=== PATIENT | female | born 1945 | race Caucasian/White ===

== ENCOUNTER → 2016-10-19 | Outpatient (CLI) | payer BC ==
[~2016-10-19] MED LIST: AMT10 PO; ATV5 PO; CLTP PO; ESZO1TAB6 PO; FSM70 PO; GABA-112 PO; MULT-506 PO; Melatonin PO; OMEG10007 PO; SIMV20TA2 PO; [UNRECOGNIZED DRUG - OTHER] PO; [UNRECOGNIZED DRUG - REMARK] PO
--- NOTE | 2016-10-19 17:01 | DIAGNOSTIC IMAGING REPORT ---
RIGHT TIBIA/FIBULA 2 VIEWS ROUTINE CLINICAL HISTORY: DISTAL CHONDROID LESION Right pain COMPARISON: None. DISCUSSION: Calcification distal tibial shaft. This appears to be benign in overall appearance. There are no expansile characteristics. There is no well-defined soft tissue component. Diagnostic considerations include bone infarct versus benign chondroid matrix type lesion)/ chondroma. There is no evidence for soft tissue swelling. IMPRESSION: Benign calcification distal tibial shaft consistent with old bone infarct versus benign en chondroma. No acute process. Electronically signed by: Tate Fuchs M.D. 10/19/2016 5:00 PM Dictated Date/Time: 10/19/2016 4:58 PM
== END | disposition home or self-care (01) ==
LOC: C.RAD 16:35
DX: M89.9 Disorder of bone, unspecified (principal)

== ENCOUNTER → 2017-02-01 | Outpatient (CLI) | payer BC ==
[2017-02-01 09:39] LABS: BASO % 0.8 %; BASO ABS # 0.04 K/uL (0-0.2); COMPLETE YES; EOS % 6.5 %; HEMATOCRIT 40.9 % (37-47); IG% 0.2 %; LYMPH % 35.6 %; LYMPH ABS # 1.82 K/uL (1.2-3.4); MEAN CELL VOLUME 98.3 fL (80-100); MEAN CORPUSCULAR HEMOGLOBIN 33.4 pg (25-34); MEAN PLATELET VOLUME 8.9 fL (7.4-10.4); MONO % 10.2 %; NEUT % 46.7 %; PLATELET COUNT 241 K/uL (130-400); RED BLOOD COUNT 4.16 M/uL (4.2-5.4); WHITE BLOOD COUNT 5.11 K/uL (4.8-10.8)
[2017-02-01 09:55] LABS: ALT/SGPT 36 U/L (12-78); AST/SGOT 24 U/L (15-37); BLOOD UREA NITROGEN 20 mg/dl (7-18); BUN/CREATININE RATIO 20.2 (10-20); CARBON DIOXIDE 28 mmol/L (21-32); CHLORIDE 102 mmol/L (98-107); CHOLESTEROL 199 mg/dl (0-200); GLUCOSE 93 mg/dl (70-99); POTASSIUM 4.4 mmol/L (3.5-5.1); SODIUM 138 mmol/L (136-145); TRIGLYCERIDES 69 mg/dl (0-150); VERY LOW DENSITY LIPOPROT CALC 14 mg/dl
[2017-02-01 09:59] LABS: CHOLESTEROL/HDL RATIO 2.3; FERRITIN 49.9 ng/ml (8.0-388.0); HDL CHOLESTEROL 88 mg/dl; LDL CHOLESTEROL CALCULATED 97 mg/dl
[2017-02-01 10:01] LABS: ESTIMATED AVERAGE GLUCOSE 128 mg/dl; HA1C FLAG Normal (Normal)
== END | disposition home or self-care (01) ==
LOC: C.LAB1850 07:57
DX: R73.9 Hyperglycemia, unspecified (principal); E78.5 Hyperlipidemia, unspecified; M19.90 Unspecified osteoarthritis, unspecified site; E61.1 Iron deficiency

== ENCOUNTER → 2017-05-11 | Outpatient (CLI) | payer BC ==
[2017-05-11 16:14] LABS: BASO % 0.5 %; BASO ABS # 0.03 K/uL (0-0.2); COMPLETE YES; EOS % 5.4 %; HEMATOCRIT 39.9 % (37-47); IG% 0.3 %; LYMPH % 29.2 %; LYMPH ABS # 1.79 K/uL (1.2-3.4); MEAN CELL VOLUME 96.6 fL (80-100); MEAN CORPUSCULAR HEMOGLOBIN 32.7 pg (25-34); MEAN CORPUSCULAR HGB CONC 33.8 g/dl (32-36); MEAN PLATELET VOLUME 8.7 fL (7.4-10.4); MONO % 10.9 %; NEUT % 53.7 %; PLATELET COUNT 261 K/uL (130-400); RED BLOOD COUNT 4.13 M/uL (4.2-5.4); WHITE BLOOD COUNT 6.13 K/uL (4.8-10.8)
[2017-05-11 16:27] LABS: BLOOD UREA NITROGEN 22 mg/dl (7-18); BUN/CREATININE RATIO 32.6 (10-20); CALCIUM 9.4 mg/dl (8.5-10.1); CARBON DIOXIDE 28 mmol/L (21-32); CHLORIDE 99 mmol/L (98-107); CREATININE 0.68 mg/dl (0.60-1.20); GLUCOSE 87 mg/dl (70-99); MAGNESIUM 2.4 mg/dl (1.8-2.4); POTASSIUM 4.2 mmol/L (3.5-5.1); SODIUM 134 mmol/L (136-145)
== END | disposition home or self-care (01) ==
LOC: C.CPL 15:12
DX: R00.2 Palpitations (principal)

== ENCOUNTER → 2017-08-09 | Outpatient (CLI) | payer BC ==
--- NOTE | 2017-08-10 07:48 | MAMMOGRAPHY REPORT ---
BILATERAL DIGITAL SCREENING MAMMOGRAM WITH CAD: 08/09/2017 CLINICAL HISTORY: Routine screening. Patient has no complaints. TECHNIQUE: Bilateral CC and MLO views were obtained. Current study was also evaluated with a Comput er Aided Detection (CAD) system. COMPARISON: Comparison is made to exams dated: 05/15/2016 mammogram, 05/03/2015 mammogram, 05/04/2014 ina mogram, 04/27/2014 mammogram, 04/24/2013 mammogram, and 04/22/2012 ultrasound - [facility]. BREAST COMPOSITION: The tissue of both breasts is heterogeneously dense, which may obscure small mas ses. FINDINGS: The parenchymal pattern is similar to prior mammograms. There are scattered stable benign -appearing rim, rounded punctate microcalcifications. No developing mass, architectural distortion o r cluster of suspicious microcalcifications is seen in either breast. IMPRESSION: ACR BI-RADS CATEGORY 2: BENIGN There is no mammographic evidence of malignancy. A 1 year screening mammogram is recommended. The pa tient will receive written notification of the results. Approximately 10% of breast cancers are not detected with mammography. A negative mammographic report should not delay biopsy if a clinically suggestive mass is present. Deidre Monet M.D. ay/:08/09/2017 15:41:05 Hospital Pharmacy Director: Angie Shannon, [facility] letter sent: Normal 1/2 BI-RADS Code: ACR BI-RADS Category 2: Benign
== END | disposition home or self-care (01) ==
LOC: C.MAMM 14:51
PROVIDERS: ATTEND Obstetrics & Gynecology
DX: Z12.31 Encounter for screening mammogram for malignant neoplasm of breast (principal)

== ENCOUNTER → 2017-11-08 | Outpatient (CLI) | payer BC ==
[2017-11-08 10:08] LABS: HEMOGLOBIN A1C 5.9 % (4.5-5.6)
== END | disposition home or self-care (01) ==
LOC: C.LAB1850 08:28
DX: R73.9 Hyperglycemia, unspecified (principal)

== ENCOUNTER → 2017-12-06 | Outpatient (CLI) | payer BC ==
[2017-12-06 10:57] LABS: BLOOD UREA NITROGEN 20 mg/dl (7-18); CALCIUM 9.1 mg/dl (8.5-10.1); CARBON DIOXIDE 27 mmol/L (21-32); CREATININE 0.93 mg/dl (0.60-1.20); GLUCOSE 92 mg/dl (70-99); POTASSIUM 4.1 mmol/L (3.5-5.1); SODIUM 135 mmol/L (136-145)
[2017-12-06 11:09] LABS: CHOLESTEROL 246 mg/dl (0-200); LDL CHOLESTEROL CALCULATED 141 mg/dl
== END | disposition home or self-care (01) ==
LOC: C.LABBC 08:06
DX: R73.9 Hyperglycemia, unspecified (principal); E78.5 Hyperlipidemia, unspecified; M85.80 Other specified disorders of bone density and structure, unspecified site; G47.00 Insomnia, unspecified

== ENCOUNTER → 2018-01-03 | Outpatient (CLI) | payer BC | END | disposition home or self-care (01) | LOC: C.MAMM 12:26 | DX: M85.88 Other specified disorders of bone density and structure, other site (principal); M85.851 Other specified disorders of bone density and structure, right thigh; M85.852 Other specified disorders of bone density and structure, left thigh ==

== ENCOUNTER 2024-05-19 18:24 | Observation (INO) ==
[2024-05-19 18:54] VITALS: TEMP 97.7
[2024-05-19 20:12] LABS: Appearance Urine Clear (Clear); Bilirubin Urine Negative (Negative); Blood Urine Negative (Negative); Color Urine Yellow; Glucose Urine UA Negative (Negative); Ketones Urine Negative (Negative); Leukocyte Esterase Urine Negative (Negative); Nitrite Urine Negative (Negative); Protein Urine Negative (Negative); Specific Gravity Urine 1.005 (1.000-1.030); Urobilinogen Urine Negative (Negative)
--- NOTE | 2024-05-19 21:57 | CT Scan Report ---
Exam(s): CT HEAD Without Contrast EXAM: CT Head Without Intravenous Contrast CLINICAL HISTORY: Reason for exam: Neuro deficit, acute, stroke suspected. TECHNIQUE: Axial computed tomography images of the head/brain without intravenous contrast. CTDI is 37.22 mGy and DLP is 624.41 mGy-cm. Automated exposure control was utilized for the study. A dose lowering technique was utilized adhering to the principles of ALARA. COMPARISON: No relevant prior studies available. FINDINGS: Brain: Unremarkable. No hemorrhage. No significant white matter disease. No edema. Ventricles: Unremarkable. No ventriculomegaly. Bones/joints: Unremarkable. No acute fracture. Soft tissues: Unremarkable. Sinuses: Unremarkable as visualized. No acute sinusitis. Mastoid air cells: Unremarkable as visualized. No mastoid effusion. IMPRESSION: No evidence of acute intercranial pathology. Electronically signed by: Idalia Pavon MD 05/19/24 21:55 PM
[2024-05-19 22:11] LABS: Albumin Globulin Ratio 2.1 (0.9-2); Albumin Level 4.6 gm/dl (3.4-5.0); BUN Creatinine Ratio 21.5 (10-20); Bilirubin,Total 0.4 mg/dl (0.2-1.0); Calcium 9.8 mg/dl (8.6-10.3); Creatinine Clr Calc Pharmacy 49.5 ml/min; Est GFR (African American) 81.9 ml/min; Est GFR (Non-African American) 70.7 ml/min; Globulin 2.2 gm/dl (2.5-4.0); Magnesium 2.2 mg/dl (1.7-2.4); Potassium 3.8 mmol/L (3.5-5.1); Total Protein 6.8 gm/dl (6.0-8.3)
[2024-05-19 22:17] LABS: Hematocrit (blood only) 41.3 % (37.0-47.0); Mean Corpuscular Hemoglobin 31.6 pg (25.0-34.0); Mean Corpuscular Hgb Conc 33.9 g/dL (32.0-36.0); Mean Corpuscular Volume 93.2 fL (80.0-100.0); Mean Platelet Volume 8.6 fL (9.4-12.4); Platelet Count 239 K/uL (130-400); RDW Coefficient of Variation 13.1 % (11.5-14.5); RDW Standard Deviation 45.1 fL (36.4-46.3); Red Blood Count 4.43 M/uL (4.20-5.40); White Blood Count 9.56 K/ul (4.8-10.8)
[2024-05-19 22:21] LABS: INR 0.9 (0.9-1.1); Partial Thromboplastin Time 26 Seconds (21-31); Prothrombin Time 10.1 Seconds (9.0-12.0)
[2024-05-19 22:27] LABS: Thyroid Stimulating Hormone 2.613 uIu/ml (0.300-4.500)
[2024-05-19] MEDS: OPTIRAY 320 125ml IV ONE (22:37)
--- NOTE | 2024-05-20 00:26 | Emergency Department Note ---
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 The patient reports she did have her flu and COVID immunizations following her exercise but reports she was already feeling some symptoms. She reports she was at home accompanied by a friend and they were speaking on the phone with other friends when the friend noticed that she was having noticeable difficulty with speaking and finding words and she repeated herself numerous times where the patient herself is now surprised and does not recall. 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 She denies any recent fevers, chills, cough, congestion, GI or symptoms. She denies headache. Of note, the patient did arrive to emergency department during time of high volume, acuity and prolonged emergency department waiting times. Critical pathways initiated from triage. On evaluation the patient is no acute distress, afebrile blood pressure in the 140s/70s and vital signs otherwise stable. She appears clinically dry. She has no focal neurologic deficits at this time. At this time speech is fluent. EKG without overt acute ischemia. CXR negative for acute cardiopulmonary process per my personal preliminary review/interpretation. WBC, H/H and platelets within normal limits. Chemistry without metabolic acidosis. Electrlytes and LFTs are unremarkable. LFTs unremarkable. TSH is normal limits. UA without evidence of infection. CT of the head was performed without contrast from triage orders and was negative for acute abnormalities. CTA of the head and neck were added on and no overt large vessel occlusion or cutoff per my preliminary independent interpretation. The patient does feel improved with resolution of symptoms. However she does agree with plan for admission for further stroke evaluation. Case was discussed with Dr. Jackson, [facility] hospitalist, who will evaluate the patient for admission. Further management per admitting team. Triage Nursing notes reviewed and agree them. Prior/external medical records reviewed Vital Signs: reviewed Differential diagnosis: Infection, dehydration, metabolic abnormality, hypo/hyperglycemia, electrolyte disturbance, anemia, hypoxia, cardiac sources, intracerebral event, toxicologic, neurologic, as well as other pathologies. ER treatment provided: See below. Diagnostics interpreted by me: ECG: Normal sinus rhythm, 88 bpm, no ectopy, no overt ST elevation or depression, QTc 408, QRS 62. Cardiac Monitoring: An order for continuous cardiac monitoring was placed and demonstrated Normal sinus rhythm, 88 bpm, no ectopy. Laboratory studies: See below Imaging studies: See below Consultation(s): Case was discussed with Dr. Jackson, [facility] hospitalist, who will evaluate the patient for admission. 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 The patient reports she did have her flu and COVID immunizations following her exercise but reports she was already feeling some symptoms. She reports she was at home accompanied by a friend and they were speaking on the phone with other friends when the friend noticed that she was having noticeable difficulty with speaking and finding words and she repeated herself numerous times where the patient herself is now surprised and does not recall. 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 She denies any recent fevers, chills, cough, congestion, GI or symptoms. She denies headache. ROS: See above HPI for pertinent positives & negatives. A total of 10 systems reviewed and were otherwise negative. VITALS:See Below PHYSICAL EXAMINATION: GENERAL: Awake, alert, fatigued-appearing, in no distress HENT: Normocephalic, atraumatic. Oropharynx with dry mucous membranes and otherwise unremarkable. . EYES: Normal conjunctiva. Sclera non-icteric. EOMI. No nystamgus. PEARRL. NECK: Supple. No nuchal rigidity. FROM. No JVD. RESPIRATORY: Clear to auscultation. CARDIAC: Regular rate, normal rhythm. Extremities warm and well perfused. Pulses equal. ABDOMEN: Soft, non-distended. No tenderness to palpation. No rebound or guarding. No masses. MUSCULOSKELETAL: Chest examination reveals no tenderness. The back is symmetrical on inspection without obvious abnormality. There is no CVA tenderness to palpation. No joint edema. LOWER EXTREMITIES: Calves are equal size bilaterally and non-tender. No edema. No discoloration. NEURO: Normal sensorium. No sensory or motor deficits noted. Cranial nerves II- XII grossly intact. 5/5 strength and SILT x 4 extremities. Cerebellar function intact including [id number], alternating palms, [id number]. SKIN: No rash or jaundice noted. Jeremy Laboy MD Past Med/Surg History Problem List (Updated 05/20/24 @ 02:30 by Jeremy Laboy MD) Hypertension (Acute) Aphasia (Acute) Stroke-like symptoms (Acute) Vaginal discharge Right knee sprain Right knee pain Osteoarthritis of right knee Synovial cyst of popliteal space [Velasquez], left knee Left knee DJD Left knee pain Medical History (Updated 05/20/24 @ 02:30 by Jeremy Laboy MD) Hypothyroid Dyslipidemia HTN (hypertension) Surgical History Hx of section Family History Father Prostate cancer Other Cancer Diabetes Denies family history of Ovarian cancer Breast cancer Colorectal cancer Social History Smoking Status: Never smoker Do You Dip or Chew Tobacco: No; Hx Alcohol Use: Yes Preferred Language: Romansh marital status: / 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 Feels Safe at Home: Yes Allergies Allergies Allergy/AdvReac Type Severity Reaction Status Date / Time No Known Allergies Allergy Unknown Verified 10/19/23 13:26 Home Meds Home Medications Medication Instructions Recorded Confirmed levothyroxine 50 mcg capsule 50 mcg PO DAILY 10/05/19 10/19/23 gabapentin 300 mg capsule 300 mg PO HS 09/26/20 10/19/23 lorazepam 1 mg tablet 0.5 - 1 mg PO .Q4-6HR PRN Anxiety 09/26/20 05/28/22 melatonin 10 mg tablet 10 mg PO HS 09/26/20 05/28/22 multivitamin 1 tab PO QAM 09/26/20 05/28/22 nebivolol 5 mg tablet (Bystolic) 5 mg PO HS 09/26/20 10/19/23 simvastatin 20 mg tablet 20 mg PO HS 09/26/20 10/19/23 cholecalciferol (vitamin D3) 125 125 mcg PO DAILY 04/03/21 10/19/23 mcg (5,000 unit) capsule amitriptyline 10 mg tablet 10 mg PO DAILY 10/19/23 10/19/23 eszopiclone 1 mg tablet 1 mg PO ONCE 10/19/23 10/19/23 fluticasone propionate 50 intranasal 10/19/23 10/19/23 mcg/actuation nasal spray,suspension risedronate 150 mg tablet mg PO 10/19/23 10/19/23 Results & Data (ED) Vital Signs Vital Signs - 24 hr 05/19/24 18:51 05/19/24 20:57 05/19/24 21:23 Temperature 36.5 C Temperature Source Temporal Artery Scan Pulse Rate 92 H 81 Pulse Rate [Apical] 83 Pulse Rate from SpO2 Sensor Pulse Rhythm [Apical] Regular Pulse Strength [Apical] Normal Respiratory Rate 16 19 Respiratory Effort / Characteristics Non-Labored Spontaneous Non-Labored Spontaneous Respiratory Depth Normal Normal Respiratory Pattern Regular Blood Pressure 196/99 H Blood Pressure [Left Arm] 153/83 H Blood Pressure Mean 131 Blood Pressure Mean [Left Arm] 106 Blood Pressure Position [Left Arm] Sitting Pulse Oximetry 98 94 Oxygen Delivery Method Room Air Room Air Sepsis Recent Fever Within 48 Hours No Sepsis New/Unexplained Change in Mental Status No Sepsis Action Taken by Nursing No Action Required 05/19/24 22:03 05/19/24 22:06 05/19/24 22:06 Temperature Temperature Source Pulse Rate 77 Pulse Rate [Apical] Pulse Rate from SpO2 Sensor 77 Pulse Rhythm [Apical] Pulse Strength [Apical] Respiratory Rate 17 Respiratory Effort / Characteristics Respiratory Depth Respiratory Pattern Blood Pressure 149/77 H Blood Pressure [Left Arm] Blood Pressure Mean 101 Blood Pressure Mean [Left Arm] Blood Pressure Position [Left Arm] Pulse Oximetry 96 96 Oxygen Delivery Method Room Air Sepsis Recent Fever Within 48 Hours Sepsis New/Unexplained Change in Mental Status Sepsis Action Taken by Nursing 05/20/24 00:00 Temperature Temperature Source Pulse Rate Pulse Rate [Apical] 84 Pulse Rate from SpO2 Sensor Pulse Rhythm [Apical] Regular Pulse Strength [Apical] Normal Respiratory Rate 18 Respiratory Effort / Characteristics Non-Labored Spontaneous Respiratory Depth Normal Respiratory Pattern Regular Blood Pressure Blood Pressure [Left Arm] 183/120 H Blood Pressure Mean Blood Pressure Mean [Left Arm] 141 Blood Pressure Position [Left Arm] Sitting Pulse Oximetry 97 Oxygen Delivery Method Room Air Sepsis Recent Fever Within 48 Hours Sepsis New/Unexplained Change in Mental Status Sepsis Action Taken by Nursing Laboratory Data Attestation: I reviewed the patient's lab results. 05/19/24 21:36 05/19/24 21:36 Lab Results 05/19/24 05/19/24 05/20/24 Range/Units 21:36 Unknown 00:33 WBC 9.56 (4.8-10.8) K/ul RBC 4.43 (4.20-5.40) M/uL Hgb 14.0 (12.0-16.0) g/dl Hct 41.3 (37.0-47.0) % MCV 93.2 (80.0-100.0) fL MCH 31.6 (25.0-34.0) pg MCHC 33.9 (32.0-36.0) g/dL RDW Std Deviation 45.1 (36.4-46.3) fL RDW Coeff of Sylvie 13.1 (11.5-14.5) % Plt Count 239 (130-400) K/uL MPV 8.6 L (9.4-12.4) fL PT 10.1 (9.0-12.0) Seconds INR 0.9 (0.9-1.1) APTT 26 (21-31) Seconds PTT Ratio 1.0 Sodium 131 L (136-145) mmol/L Potassium 3.8 (3.5-5.1) mmol/L Chloride 99 (98-107) mmol/L Carbon Dioxide 26 (21-32) mmol/L Anion Gap 6 (3-11) BUN 17 (6-23) mg/dl Creatinine 0.79 (0.6-1.2) mg/dl Est Cr Clr Drug Dosing 49.5 ml/min Est GFR ( Amer) 81.9 ml/min Est GFR (Non-Af Amer) 70.7 ml/min BUN/Creatinine Ratio 21.5 H (10-20) Glucose 110 H (70-99(Fasting)) mg/dl POC Glucose (70-99) mg/dl Calcium 9.8 (8.6-10.3) mg/dl Magnesium 2.2 (1.7-2.4) mg/dl Total Bilirubin 0.4 (0.2-1.0) mg/dl AST 25 (13-39) U/L ALT 22 (7-52) U/L Alkaline Phosphatase 60 (34-104) U/L Troponin I High Sens 5.8 (0-14) pg/ml Total Protein 6.8 (6.0-8.3) gm/dl Albumin 4.6 (3.4-5.0) gm/dl Globulin 2.2 L (2.5-4.0) gm/dl Albumin/Globulin Ratio 2.1 H (0.9-2) TSH 2.613 (0.300-4.500) uIu/ml Urine Color Yellow Urine Appearance Clear (Clear) Urine pH 6.0 (4.5-7.5) Ur Specific Gile 1.005 (1.000-1.030) Urine Protein Negative (Negative) Urine Glucose (UA) Negative (Negative) Urine Ketones Negative (Negative) Urine Blood Negative (Negative) Urine Nitrite Negative (Negative) Urine Bilirubin Negative (Negative) Urine Urobilinogen Negative (Negative) Ur Leukocyte Esterase Negative (Negative) 05/20/24 Range/Units 00:59 WBC (4.8-10.8) K/ul RBC (4.20-5.40) M/uL Hgb (12.0-16.0) g/dl Hct (37.0-47.0) % MCV (80.0-100.0) fL MCH (25.0-34.0) pg MCHC (32.0-36.0) g/dL RDW Std Deviation (36.4-46.3) fL RDW Coeff of Sylvie (11.5-14.5) % Plt Count (130-400) K/uL MPV (9.4-12.4) fL PT (9.0-12.0) Seconds INR (0.9-1.1) APTT (21-31) Seconds PTT Ratio Sodium (136-145) mmol/L Potassium (3.5-5.1) mmol/L Chloride (98-107) mmol/L Carbon Dioxide (21-32) mmol/L Anion Gap (3-11) BUN (6-23) mg/dl Creatinine (0.6-1.2) mg/dl Est Cr Clr Drug Dosing ml/min Est GFR ( Amer) ml/min Est GFR (Non-Af Amer) ml/min BUN/Creatinine Ratio (10-20) Glucose (70-99(Fasting)) mg/dl POC Glucose 113 H (70-99) mg/dl Calcium (8.6-10.3) mg/dl Magnesium (1.7-2.4) mg/dl Total Bilirubin (0.2-1.0) mg/dl AST (13-39) U/L ALT (7-52) U/L Alkaline Phosphatase (34-104) U/L Troponin I High Sens (0-14) pg/ml Total Protein (6.0-8.3) gm/dl Albumin (3.4-5.0) gm/dl Globulin (2.5-4.0) gm/dl Albumin/Globulin Ratio (0.9-2) TSH (0.300-4.500) uIu/ml Urine Color Urine Appearance (Clear) Urine pH (4.5-7.5) Ur Specific Gile (1.000-1.030) Urine Protein (Negative) Urine Glucose (UA) (Negative) Urine Ketones (Negative) Urine Blood (Negative) Urine Nitrite (Negative) Urine Bilirubin (Negative) Urine Urobilinogen (Negative) Ur Leukocyte Esterase (Negative) Administered Medications Discontinued Medications Sodium Chloride (Nss) 1,000 mls @ 999 mls/hr IV .Q1H1M ONE Stop: 05/20/24 01:53 Last Admin: 05/20/24 01:11 Dose: 999 mls/hr Documented By: TEENA Ioversol (Optiray 320 125ml) 118 ml IV ONCE ONE Stop: 05/19/24 22:38 Last Admin: 05/19/24 22:37 Dose: 118 ml Documented By: KRISSY Imaging Data Radiologist's Impression: Head CT 05/19/24 18:54 Exam(s): CT HEAD Without Contrast EXAM: CT Head Without Intravenous Contrast CLINICAL HISTORY: Reason for exam: Neuro deficit, acute, stroke suspected. TECHNIQUE: Axial computed tomography images of the head/brain without intravenous contrast. CTDI is 37.22 mGy and DLP is 624.41 mGy-cm. Automated exposure control was utilized for the study. A dose lowering technique was utilized adhering to the principles of ALARA. COMPARISON: No relevant prior studies available. FINDINGS: Brain: Unremarkable. No hemorrhage. No significant white matter disease. No edema. Ventricles: Unremarkable. No ventriculomegaly. Bones/joints: Unremarkable. No acute fracture. Soft tissues: Unremarkable. Sinuses: Unremarkable as visualized. No acute sinusitis. Mastoid air cells: Unremarkable as visualized. No mastoid effusion. IMPRESSION: No evidence of acute intercranial pathology. Electronically signed by: Idalia Pavon MD 05/19/24 21:55 PM Head CTA 05/19/24 21:39 Exam(s): CTA HEAD With Contrast IV Amt: 118 ML OPTIRAY 320 EXAM: CT Angiography Head With Intravenous Contrast CLINICAL HISTORY: Reason for exam: confusion. TECHNIQUE: Axial computed tomographic angiography images of the head with intravenous contrast. CTDI is 11.19 mGy and DLP is 425.7 mGy-cm. Automated exposure control was utilized for the study. A dose lowering technique was utilized adhering to the principles of ALARA. MIP reconstructed images were created and reviewed. CONTRAST: Patient received 118 ML OPTIRAY 320 of IV contrast COMPARISON: No relevant prior studies available. FINDINGS: The dural venous sinuses are patent. Right internal carotid artery: No acute findings. Intracranial segment is patent with no significant stenosis. No aneurysm. Right anterior cerebral artery: Unremarkable. No occlusion or significant stenosis. No aneurysm. Right middle cerebral artery: Unremarkable. No occlusion or significant stenosis. No aneurysm. Right posterior cerebral artery: Unremarkable. No occlusion or significant stenosis. No aneurysm. Right vertebral artery: Unremarkable as visualized. Left internal carotid artery: No acute findings. Intracranial segment is patent with no significant stenosis. No aneurysm. Left anterior cerebral artery: Unremarkable. No occlusion or significant stenosis. No aneurysm. Left middle cerebral artery: Unremarkable. No occlusion or significant stenosis. No aneurysm. Left posterior cerebral artery: Unremarkable. No occlusion or significant stenosis. No aneurysm. Left vertebral artery: Unremarkable as visualized. Basilar artery: Unremarkable. No occlusion or significant stenosis. No aneurysm. IMPRESSION: Negative CT angiogram of the head. Electronically signed by: Idalia Pavon MD 05/20/24 01:03 AM Neck CTA 05/19/24 21:39 Exam(s): CTA NECK With Contrast IV Amt: 118 [id number] EXAM: CT Angiography Neck With Intravenous Contrast CLINICAL HISTORY: Reason for exam: confusion. TECHNIQUE: Routine carotid CT angiography protocol was performed with intravenous contrast. NASCET criteria using the distal ICAs for comparison were used for evaluation of stenoses. CTDI is 11.19 mGy and DLP is 425.7 mGy-cm. Automated exposure control was utilized for the study. A dose lowering technique was utilized adhering to the principles of ALARA. MIP reconstructed images were created and reviewed. CONTRAST: Patient received 118 [id number] of IV contrast COMPARISON: None. FINDINGS: VASCULATURE: Right common carotid artery: Unremarkable. No occlusion or significant stenosis. No dissection. Right internal carotid artery: Unremarkable. Extracranial segment is patent with no occlusion or significant stenosis. No dissection. Right external carotid artery: Unremarkable. No occlusion. Right vertebral artery: Unremarkable. No occlusion or significant stenosis. No dissection. Left common carotid artery: Unremarkable. No occlusion or significant stenosis. No dissection. Left internal carotid artery: Unremarkable. Extracranial segment is patent with no occlusion or significant stenosis. No dissection. Left external carotid artery: Unremarkable. No occlusion. Left vertebral artery: Unremarkable. No occlusion or significant stenosis. No dissection. NECK: Bones/joints: Unremarkable. No acute fracture. Soft tissues: Unremarkable. Lung apices: Clear. CAROTID STENOSIS REFERENCE USING NASCET CRITERIA: % ICA stenosis = (1 - narrowest ICA diameter/diameter of distal cervical ICA) x 100. Mild - <50% stenosis. Moderate - 50-69% stenosis. Severe - 70-94% stenosis. Near occlusion - 95-99% stenosis. Occluded - 100% stenosis. IMPRESSION: Negative CTA neck. Electronically signed by: Idalia Pavon MD 05/20/24 01:05 AM Discharge Plan Visit Data Chief Complaint: Confusion Stated Complaint: BRAIN FOG ED Provider: Jeremy Laboy Discharge Problem: Stroke-like symptoms, Aphasia, Hypertension Discharge Problem: Hypertension Qualifiers: Hypertension type: unspecified Qualified Code(s): I10 - Essential (primary) hypertension
--- NOTE | 2024-05-20 01:04 | CT Scan Report ---
Exam(s): CTA HEAD With Contrast IV Amt: 118 ML OPTIRAY 320 EXAM: CT Angiography Head With Intravenous Contrast CLINICAL HISTORY: Reason for exam: confusion. TECHNIQUE: Axial computed tomographic angiography images of the head with intravenous contrast. CTDI is 11.19 mGy and DLP is 425.7 mGy-cm. Automated exposure control was utilized for the study. A dose lowering technique was utilized adhering to the principles of ALARA. MIP reconstructed images were created and reviewed. CONTRAST: Patient received 118 ML OPTIRAY 320 of IV contrast COMPARISON: No relevant prior studies available. FINDINGS: The dural venous sinuses are patent. Right internal carotid artery: No acute findings. Intracranial segment is patent with no significant stenosis. No aneurysm. Right anterior cerebral artery: Unremarkable. No occlusion or significant stenosis. No aneurysm. Right middle cerebral artery: Unremarkable. No occlusion or significant stenosis. No aneurysm. Right posterior cerebral artery: Unremarkable. No occlusion or significant stenosis. No aneurysm. Right vertebral artery: Unremarkable as visualized. Left internal carotid artery: No acute findings. Intracranial segment is patent with no significant stenosis. No aneurysm. Left anterior cerebral artery: Unremarkable. No occlusion or significant stenosis. No aneurysm. Left middle cerebral artery: Unremarkable. No occlusion or significant stenosis. No aneurysm. Left posterior cerebral artery: Unremarkable. No occlusion or significant stenosis. No aneurysm. Left vertebral artery: Unremarkable as visualized. Basilar artery: Unremarkable. No occlusion or significant stenosis. No aneurysm. IMPRESSION: Negative CT angiogram of the head. Electronically signed by: Idalia Pavon MD 05/20/24 01:03 AM
--- NOTE | 2024-05-20 01:06 | CT Scan Report ---
Exam(s): CTA NECK With Contrast IV Amt: 118 [id number] EXAM: CT Angiography Neck With Intravenous Contrast CLINICAL HISTORY: Reason for exam: confusion. TECHNIQUE: Routine carotid CT angiography protocol was performed with intravenous contrast. NASCET criteria using the distal ICAs for comparison were used for evaluation of stenoses. CTDI is 11.19 mGy and DLP is 425.7 mGy-cm. Automated exposure control was utilized for the study. A dose lowering technique was utilized adhering to the principles of ALARA. MIP reconstructed images were created and reviewed. CONTRAST: Patient received 118 [id number] of IV contrast COMPARISON: None. FINDINGS: VASCULATURE: Right common carotid artery: Unremarkable. No occlusion or significant stenosis. No dissection. Right internal carotid artery: Unremarkable. Extracranial segment is patent with no occlusion or significant stenosis. No dissection. Right external carotid artery: Unremarkable. No occlusion. Right vertebral artery: Unremarkable. No occlusion or significant stenosis. No dissection. Left common carotid artery: Unremarkable. No occlusion or significant stenosis. No dissection. Left internal carotid artery: Unremarkable. Extracranial segment is patent with no occlusion or significant stenosis. No dissection. Left external carotid artery: Unremarkable. No occlusion. Left vertebral artery: Unremarkable. No occlusion or significant stenosis. No dissection. NECK: Bones/joints: Unremarkable. No acute fracture. Soft tissues: Unremarkable. Lung apices: Clear. CAROTID STENOSIS REFERENCE USING NASCET CRITERIA: % ICA stenosis = (1 - narrowest ICA diameter/diameter of distal cervical ICA) x 100. Mild - <50% stenosis. Moderate - 50-69% stenosis. Severe - 70-94% stenosis. Near occlusion - 95-99% stenosis. Occluded - 100% stenosis. IMPRESSION: Negative CTA neck. Electronically signed by: Idalia Pavon MD 05/20/24 01:05 AM
[2024-05-20] MEDS: SODIUM CHLORIDE 0.9% 1,000 ML IV ONE (01:11)
--- OUTSIDE RECORDS SUMMARY | 2024-05-20 01:26 | External Medical Summary | Summary of Care ---
Author Name Unknown Organization [facility] Address [address] [facility] [place] [address] Phone [phone] Care Team Providers Care Follow Up Clerk Name Role Phone Young Joe MD Primary Care Provider + Reason for Referral * Evaluate & Treat - Unlimited Visits (Within 10 days (routine)) - Authorized Specialty Diagnoses / Procedures Referred By Contac t Referred To Contact Infectious Diseases / Infectious Disease Diagnoses Other fatigue Fever, unspecified Kassy Gibbs MD [address] [place] [address] Referral ID Status Reason Start Date Expiration Date Visits Requested Visits Authorized [id number] Authorized Specialty Services Required 04/13/[phone] Question Answer Referral Priority Within 10 days (routine) Where should this appointment be scheduled? [facility] What condition is the patient being seen for? All Other Conditions Comments Patient has week long low grade fever with fatigue, was diagnosed with UTI and was given antibiotic. Lyme titer was negative. Wants second opinion. Encounter Details Date Type Department Care Team (Late st Contact Info) Description 04/13/2024 Orders Only [facility], [place] [facility] [address] [facility] *DO NOT REMOVE THIS DEPARTMENT* [place] [id number] Request, External Referral Other fatigue*; Fever, unspecified Allergies No known active allergiesdocumented as of this encounter (statuses as of 04/13/2024) Medications Medication Sig Dispensed Refills Start Date End Date Status NEURONTIN 300 MG PO CAPS one by mouth daily Active AMITRIPTYLINE HCL 10 MG PO TABS 20 mg by mouth every night for sleep Active fluticasone (FLONASE) 50 MCG/ACT nasal spray As needed 0 07/02/2015 Active Vitamin D 125 MCG (5000 UT) Oral Capsule Take by mouth 5,000 Units daily . Active Probiotic Product (ALIGN) Capsule Take 1 Capsule by mouth in the morning. Active NATURAL SUPPLEMENT Take by mouth daily. Medical cannabis Active Nutritional Supplements (JUICE PLUS FIBRE) LIQD Take by mouth. 1 daily Active Eszopiclone 1 MG Oral Tablet Take 1 Tablet by mouth as needed. 11/23/2019 Active LORazepam 1 MG Oral Tablet (Ativan) Take 1 Tablet by mouth as needed. 08/12/2020 Active Levothyroxine Sodium 50 MCG Oral Tablet (Levoxyl) 08/11/2021 Active Rosuvastatin Calcium 5 MG Oral Tablet (Crestor) Take 1 Tablet by mouth at bedtime. 06/06/2021 Active Risedronate Sodium 150 MG Oral Tablet (Actonel) Take 1 Tablet by mouth Every Month. (mail to patient) 3 Tablet 5 10/28/2023 Active documented as of this encounter (statuses as of 04/13/2024) Active Problems Problem Noted Date Diagnosed Date Senile osteoporosis 10/09/2021 Primary osteoarthritis of both hands 10/09/2021 Retinal edema 09/15/2010 Generalized osteoarthritis Idiopathic peripheral autonomic neuropathy documented as of this encounter (statuses as of 04/13/2024) Resolved Problems Problem Noted Date Diagnosed Date Resolved Date Encounter for examination fo r normal comparison and control in clinical research program 05/23/2018 04/01/2020 Overview: DO NOT DELETE [facility] DETECT Study: Project # [id number], Stitcher Tape Controlled Machine: Edy Alicea, PhD. SUMMARY: Goal: Establish test characteristics (sensitivity, specificity, PPV, NPV) of a circulating tumor DNA (ctDNA)-based test for cancer. Hypothesis: Circulating tumor DNA (ctDNA) and elevated protein biomarkers (together, the marker panel) can be detected in asymptomatic individuals with early cancer. Specific Aim 1: Determine the prevalence of a positive marker panel test in a prospective clinical cohort of 10,000 asymptomatic women ages 65 to 75 years. Specific Aim 2: Determine the sensitivity, specificity, positive predictive value (PPV) and negative predictive value (NPV) of a marker panel test to identify histologically proven cancers that develop within 5-years of the marker panel evaluation. CONTACTS: During normal business hours, contact study staff at ; after hours Stitcher Tape Controlled Machine via the [facility] chief operator . Please contact study team before resolving/deleting from patients problem list. Study phone number: [phone]. Diagnosis changed due to Research Module. Go to [employer] for study details. Encounter for examination fo r normal comparison and control in clinical research program 05/23/2018 04/30/2022 Overview: DO NOT DELETE - [facility] Study: Project # [id number], Stitcher Tape Controlled Machine: Maged Cooley, MS, MPH. SUMMARY: Goal: Establish test characteristics (sensitivity, specificity, PPV, NPV) of a circulating tumor DNA (ctDNA)-based test for cancer. - Hypothesis: Circulating tumor DNA (ctDNA) and elevated protein biomarkers (together, the marker panel) can be detected in asymptomatic individuals with early cancer. - Specific Aim 1: Determine the prevalence of a positive marker panel test in a prospective clinical cohort of 10,000 asymptomatic women ages 65 to 75 years. - Specific Aim 2: Determine the sensitivity, specificity, positive predictive value (PPV) and negative predictive value (NPV) of a marker panel test to identify histologically proven cancers that develop within 5-years of the marker panel evaluation. - CONTACTS: During normal business hours, contact study staff at ; after hours Stitcher Tape Controlled Machine via the [facility] hospital chief operator . - Please contact study team before resolving/deleting from patients problem list. Study phone number: [phone]. Diagnosis changed due to Research Module. Go to [employer] for study details. documented as of this encounter (statuses as of 04/13/2024) Immunizations Name Administration Dates Next Due COVID-19 mRNA, LNP-s, No Pre serve, 2-Dose Series (Moderna) 05/29/2021,10/12/2020,09/11/2020 Pneumococcal Conjugate Vacc, 13 Valent (Prevnar) 04/14/2019 Pneumococcal Polysaccharide PPV23 (Pneumovax) 11/29/2013,09/02/2007 Season Influenza, Quad, PF, Adjuvanted, 65+ Yrs, IM (FLUAD) 06/18/2021 Seasonal Influenza, Quadriva lent Hd, 65+ Yrs 05/30/2022 Seasonal Influenza, Recombin ant, RIV4, PF, (Flublock) 06/07/2020 Seasonal Influenza, Split, I IV3, With Preserve, Inj 06/20/2018,07/12/2017,05/13/2015,06/12,06/10/2012,07/22/2010,08/09/2008 ,06/18/2007,07/17/2005 Seasonal Influenza, Trivalen t, Adjuvanted, 65+ yrs 07/07/2019 Seasonal Influenza, Trivalen t, High Dose, No Preserve, IM 07/07/2019 Varicella Zoster Vaccine (Adult) 07/22/2015 Zoster Vaccine Recombinant (Shingrix) 06/06/2021 ,11/30/2020 documented as of this encounter Social History Tobacco Use Types Packs/Day Years Used Date Smoking Tobacco: Never Smokeless Tobacco: Never Alcohol Use Standard Drinks/Week Comments Yes 0 (1 standard drink = 0.6 oz pur e alcohol) occasional Utilities Answer Date Recorded Do you have trouble paying y our heating, water, or electric bill? (Adult - for ages 18 years and over) Not on file 02/15/2024 Is your family able to pay t he heat, water, or electric bill? (Household - for ages 0-17 years) Not on file 02/15/2024 Does your family have access to good internet? (Household - for ages 0-17 years) Not on file 02/15/2024 Social Connections Answer Date Recorded How often do you feel lonely or isolated from those around you? (Adult - for ages 18 years and over) Not on file 02/15/2024 Sex and Gender Information Value Date Recorded Sex Assigned at Female 10/08/2022 8:23 PM EST Gender Identity Female 10/08/2022 8:23 PM EST Sexual Orientation Straight 10/08/2022 8: 23 PM EST Job Start Date Occupation Industry Not on file Not on file Not on file documented as of this encounter Plan of Treatment Upcoming Encounters Date Type Department Care Team (Late st Contact Info) Description 11/01/2024 8:40 AM EST [facility] [address] [place] [address] Kurt Hutchins MD [address] [place] [address] Scheduled Referrals Name Type Priority Associated Diagnoses Orde r Schedule INFECTIOUS DISEASE REFERRAL OP Referral Within 10 days (routine) Other fatigue Fever, unspecified Ordered: 04/13/2024 Health Maintenance Due Date Last Done Comments Depression Screening 1957 DTaP,Tdap,and Td Vaccines (1 - Tdap) 1964 COVID-19 Vaccine (5 - 2022- season) 2023 06/25/2023, 05/29/2021, 10/12/2020, Additional history exists Influenza Vaccine (FLU shot) (#1) 2024 06/25/2023, 05/30/2022, 06/18/2021, Additional history exists TSH 07/01/2024 07/01/2023, 07/02/2021 DXA Scan 12/16/2025 12/17/2023, 07/03/2021 Pneumococcal Vaccine: 65+ Years Completed 04/14/2019, 11/29/2013, 09/02/2007 Zoster Vaccines Completed 06/06/2021, 10/2020, 07/22/2015 VITAMIN D LEVEL ONCE IN A LIFETIME-USE SMARTSET# [id number] Completed 11/22/2023, 11/16/2022 HPV (Gardasil) Vaccine Aged Out No lo nger eligible based on patient's age to complete this topic Hepatitis B Vaccine Aged Out No longe r eligible based on patient's age to complete this topic MENINGOCOCCAL (MENACTRA/MENVEO) Aged Out No longer eligible based on patient's age to complete this topic documented as of this encounter Medical Devices Implanted Type Area Research Chemist Device Identifier Shelf Expiration Date Model / Serial / Lot Lens Intraoc 20.5 - [id number] - [id number] Implanted:Qty: 1 on 06/10/2021 by Darshan Agarwal MD at [facility] Left: Eye [employer] 03/29/2026 [id number] / [id number] / documented as of this encounter Visit Diagnoses Diagnosis Other fatigue- Primary Fever, unspecified documented in this encounter Care Teams Follow Up Clerk Relationship Specialty Start Date End Date Young Joe MD [facility] [address] [address] PCP - General Internal Medicine 10/11/23 documented as of this encounter
--- OUTSIDE RECORDS SUMMARY | 2024-05-20 01:26 | External Medical Summary | Continuity of Care Document ---
Author Name Unknown Organization [address] Address [address] [place], [place] [id number] Care Team Providers Care Customer Field Representative Name Role Phone HeathYoung goldsmith Patrick Primary Care Physician [phone] Encounter [facility] [id number] Date(s): 03/29/24 - 03/29/24 [place] [address] [facility] [address] [address] [phone] Encounter Diagnosis Body mass index [BMI] 25.0-25.9, adult(Discharge Diagnosis) - 03/29/24 Fever, unspecified(Final) - Fever of unknown origin(Discharge Diagnosis) - 03/29/24 UTI (urinary tract infection), bacterial(Discharge Diagnosis) - 03/30/24 Discharge Disposition: Home or Self Care Attending Physician: MD Gibbs [place] Referring Physician: MD Gibbs [place] Allergies, Adverse Reactions, Alerts No Known Medication Allergies Substance Criticality Severity Reaction Reaction Severity Status Allergy Not found in Search 1 sinus Active 1Seasonal Allergies Assessment and Plan Extracted from: Title:Office Visit Note Author:MD Bernie, [facility] Date:03/29/24 1.Fever of unknown origin Offand on fever with fatigue. Negative Lyme disease. Normal CBC and CMP tested 1 week ago. Patient reported that her symptoms were similar in the past when she was treated for Lyme disease. She's concerned that her Lyme test possibly a false negative. Discussed at length with patient about Lyme disease and testing. She denies any other symptoms other donefatigue and fever. Patient's temperature today is normal. Normal lung sounds but will order CXR. Will order ESR and CRP. Repeat CBC and BMP. Increase oral fluid intake. 2.UTI (urinary tract infection), bacterial Urine culture: E.coli more than 100, 000 colonies. Last day of oral antibiotic. Patient still complaining of fever and fatigue. Advised to take Augmentin 875 mg 1 tab 2x a day for 5 days after she finished the cephalexin. Take the antibiotic with food. Advised to take probiotics. Increase oral fluid intake Follow up in 1 week for re-evaluation. Immunizations Given and Recorded Vaccine Date Status Refusal Reason SARS-CoV-2 (COVID-19) mRNA-vacc - [id number] 02/10/24 Recorded SARS-CoV-2 (COVID-19) mRNA-vacc - [id number] 1 06/25/23 Recorded influenza virus vaccine, inactivated 06/25/23 Tucker rded tetanus/diphtheria/pertuss, acel (Tdap) 2 06/19/23 Recorded RSV vaccine, preF A-preF B, recombinant 3 06/19/23 Recorded SARS-CoV-2 mRNA-1273 (6y+ bivalent) 4 01/15/23 Rec orded SARS-CoV-2 mRNA-1273 (6y+ bivalent) 5 06/12/22 Rec orded SARS-CoV-2 (COVID-19) mRNA-1273 vaccine 6 01/17/22 Recorded SARS-CoV-2 (COVID-19) mRNA-1273 vaccine 7 06/21/21 Recorded SARS-CoV-2 (COVID-19) mRNA-1273 vaccine 8 05/29/21 Recorded SARS-CoV-2 (COVID-19) mRNA-1273 vaccine 9 10/12/20 Recorded SARS-CoV-2 (COVID-19) mRNA-1273 vaccine 10 10/07/20 Recorded SARS-CoV-2 (COVID-19) mRNA-1273 vaccine 11 09/11/20 Recorded zoster vaccine, inactivated 12 06/06/21 Recorded zoster vaccine, inactivated 13 11/30/20 Recorded pneumococcal 13-valent vaccine 14 04/14/19 Recorde d zoster vaccine live 15 07/22/15 Recorded 1Result Comment: 2023-07-08: Historical information-source unspecified 2Result Comment: 2023-07-08: Historical information-source unspecified 3Result Comment: 2023-07-08: Historical information-source unspecified 4Result Comment: 2023-07-08: Historical information-source unspecified 5Result Comment: 2023-01-01: Historical information-source unspecified 6Result Comment: 2023-01-01: Historical information-source unspecified 7Result Comment: 2022-01-01: Historical information-source unspecified 8Result Comment: 2022-01-01: Historical information-source unspecified 9Result Comment: 2022-01-01: Historical information-source unspecified 10Result Comment: 2022-01-01: Historical information-source unspecified 11Result Comment: 2022-01-01: Historical information-source unspecified 12Result Comment: 2022-01-01: Historical information-source unspecified 13Result Comment: 2022-01-01: Historical information-source unspecified 14Result Comment: 2022-01-01: Historical information-source unspecified 15Result Comment: 2022-01-01: Historical information-source unspecified Medications Actonel 150 mg oral tablet Start: 01/01/23 8:01:00 AM EDT, 1 tab, PO, [id number], Disp# 90 tab, Refills: 1, Pharmacy: [facility] Start Date: 01/01/23 Status: Ordered amitriptyline 10 mg oral tablet Start: 07/08/23 8:34:00 AM EST, 1 tab, PO, qhs, Disp# 90 tab, Refills: 3, Pharmacy: [facility] Start Date: 07/08/23 Status: Ordered Augmentin 500 mg-125 mg oral tablet Start: 03/29/24 9:38:00 AM EDT, amoxicillin 1 tab, PO, q12h, Disp# 10, Refills: 0, Pharmacy: [facility]/pharmacy #[id number] Start Date: 03/29/24 Stop Date: 04/03/24 Status: Ordered cephalexin 500 mg oral tablet Start: 03/23/24 9:06:00 AM EDT, 1 tab, PO, tid, Disp# 21 tab, Pharmacy: [facility]/pharmacy #[id number] Start Date: 03/23/24 Stop Date: 03/30/24 Status: Ordered CoQ10 100 mg oral capsule Start: 01/01/23 7:59:00 AM EDT Start Date: 01/01/23 Status: Ordered eszopiclone 1 mg oral tablet Start: 12/30/23 6:43:00 AM EDT, 1 tab, PO, qhs, Disp# 30 tab, PRN: as needed for insomnia, Pharmacy: [facility] Start Date: 12/30/23 Status: Ordered Flonase 50 mcg/inh nasal spray Start: 07/08/23 8:34:00 AM EST, 1 spray, each nostril, Daily, Disp# 16 g, Refills: 3, Pharmacy: [facility] #[id number] Start Date: 07/08/23 Stop Date: 11/05/23 Status: Ordered gabapentin 300 mg oral capsule Start: 07/08/23 8:34:00 AM EST, 1 cap, PO, Daily, Disp# 90 cap, Refills: 3, Pharmacy: [facility] Start Date: 07/08/23 Status: Ordered levothyroxine 50 mcg (0.05 mg) oral tablet Start: 10/14/23 9:17:00 AM EST, See Instructions, Disp# 90 unknown unit, Refills: 2, TAKE 1 TABLET BY MOUTH DAILY., Pharmacy: [facility] Start Date: 10/14/23 Status: Ordered Macular Health Start: 01/01/22 3:21:00 PM EDT, See Instructions, 4 caps PO daily Start Date: 01/01/22 Status: Ordered omeprazole 20 mg oral delayed release capsule Start: 03/14/24 11:04:00 AM EDT, 1 cap, PO, Daily, Disp# 30 cap, Refills: 3, 1/2 hour before breakfast, Pharmacy: [facility] Start Date: 03/14/24 Status: Ordered rosuvastatin 5 mg oral tablet Start: 01/06/24 8:54:00 AM EDT, See Instructions, Disp# 90 tab, Refills: 3, TAKE 1 TABLET ONCE DAILY AT BEDTIME, Pharmacy: [facility] Start Date: 01/06/24 Status: Ordered Vitamin D3 5000 intl units (125 mcg) oral tablet Start: 01/01/22 3:20:00 PM EDT, 1 tab, PO, Daily Start Date: 01/01/22 Status: Ordered Mental Status 03/29/24 Barriers to Learning one year None evide nt Mandatory Health Literacy Documentation Yes Health Literacy Communication Barriers N ever Primary Language Haitian Problem List Condition Confirmation Course Effective Dates Status H ealth Status Informant Macular degeneration Confirmed Active Hyperlipidemia Confirmed Active Hypothyroidism Confirmed Active Insomnia Confirmed Active Osteoporosis Confirmed Active Peripheral neuropathy Confirmed Active Prediabetes Confirmed Active Skin lesion Confirmed Active PVC (premature ventricular contraction) Confirmed Active Diagnosis Diagnosis Type Effective Dates Health Status Cl inical Service Informant Fever of unknown origin Discharge Diagnosis 03/29/24 Non-Specified Body mass index [BMI] 25.0-25.9, adult Discharge Diagnosis 03/29/24 Non-Specified UTI (urinary tract infection), bacterial Discharge Diagnosis 03/30/24 Non-Specified Procedures Procedure Date Related Diagnosis Body Site Status EGD - esophagogastroduodenos copy 1, 2, 3 03/14/24 Completed Colonoscopy 4 02/25/21 Completed Esophagogastroduodenoscopy 5 02/25/21 Completed Shave biopsy of skin 09/26/18 Comp leted delivery 6 Compl eted 1A) Antrum, biopsy: Congestion and epithelial repair compatible with healing erosion. COMMENT: No Helicobacter pylori organisms are identified on an immunohistochemical stain for H. pylori. B) Gastroesophageal junction, biopsy: Squamous and inflamed gastric columnar mucosa with epithelial repair. COMMENT: No intestinal metaplasia or dysplasia identified. 2Repeat EGD in 3 years. 3- Esophagogastric landmarks identified. 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 Biopsied. - Erosive gastropathy with no bleeding and no stigmata of recent bleeding. Biopsied. - Normal examined duodenum. - The examination was otherwise normal. 4COLO to TI , 2 mm cecal polyp CF 5EGD irregular Z line bx, 2nd duod [place]l bx, [id number] Results Laboratory List Name Date C Reactive Protein, Quantitation (CRP QU ANTITATION) 03/29/24 Complete Blood Count w Differential (CBC ,DIFFH) 03/29/24 Comprehensive Metabolic Panel (COMP META B PANEL) 03/29/24 Erythrocyte Sedimentation Rate (SEDIMENT ATION RATE) 03/29/24 Most recent to oldest [Reference Range]: 1 CReacProt [<0.50 mg/dL] <0.30 mg/dL (03/29/24 11:43 AM) eGFR CKD-EPI [>60 mL/min/1.73 m2] 83 mL/ min/1.73 m2 1 (03/29/24 11:43 AM) Estimated CrCl 53.38 mL/min (03/29/24 12:13 PM) MPV [9.0-12.2 fL] 9.2 fL (03/29/24 11:43 AM) Immature Gran% 0.7 % (03/29/24 11:43 AM) Neut% 65.2 % (03/29/24 11:43 AM) Lymph% 22.3 % (03/29/24 11:43 AM) Bath% 9.5 % (03/29/24 11:43 AM) Baso% 0.7 % (03/29/24 11:43 AM) Eos% 1.6 % (03/29/24 11:43 AM) Immat Gran, Abs [0-0.4 K/uL] 0.05 K/uL (03/29/24 11:43 AM) Neut, Abs [2.0-7.7 K/uL] 4.40 K/uL (03/29/24 11:43 AM) Lymph, Abs [1.0-3.4 K/uL] 1.51 K/uL (03/29/24 11:43 AM) Bath, Abs [0-1.0 K/uL] 0.64 K/uL (03/29/24 11:43 AM) Baso, Abs [0-0.1 K/uL] 0.05 K/uL (03/29/24 11:43 AM) Eos, Abs [0-0.5 K/uL] 0.11 K/uL (03/29/24 11:43 AM) Type of Diff: AUTO *Unknown* (03/29/24 11:43 AM) RDW [11.5-14.2 %] 13.8 % (03/29/24 11:43 AM) Anion Gap [5-14 mmol/L] 7 mmol/L (03/29/24 11:43 AM) Alb [3.5-5.0 g/dL] 4.2 g/dL (03/29/24 11:43 AM) Alk Phos [38-126 unit/L] 68 unit/L (03/29/24 11:43 AM) ALT [<35 unit/L] 25 unit/L (03/29/24 11:43 AM) AST [15-46 unit/L] 31 unit/L (03/29/24 11:43 AM) BUN [7-20 mg/dL] 18 mg/dL (03/29/24 11:43 AM) Ca [8.4-10.2 mg/dL] 9.3 mg/dL (03/29/24 11:43 AM) Cl- [96-107 mmol/L] 104 mmol/L (03/29/2443 AM) HCO3 [22-30 mmol/L] 26 mmol/L (03/29/24:43 AM) Cret [0.60-1.00 mg/dL] 0.73 mg/dL (03/29/24:43 AM) ESR [0-50 mm/hr] 5 mm/hr 2 (03/29/2443 AM) Glu [74-106 mg/dL] 92 mg/dL (03/29/24:43 AM) Hct [35-44 %] 42.7 % (03/29/24 AM) Hgb [11.7-15.0 g/dL] 14.2 g/dL (03/29/24:43 AM) K [3.5-5.1 mmol/L] 4.5 mmol/L (03/29/2443 AM) MCH [28-33 pg] 32.3 pg (03/29/24: AM) MCHC [32-36 g/dL] 33.3 g/dL (03/29/24:43 AM) MCV [81-96 fL] 97.0 fL *HI* (03/29/24: AM) Na [137-145 mmol/L] 137 mmol/L (03/29/24:43 AM) Plts [150-350 K/uL] 274 K/uL (03/29/2443 AM) RBC [3.90-5.00 M/uL] 4.40 M/uL (03/29/24:43 AM) T Bili [0.2-1.3 mg/dL] 0.5 mg/dL (03/29/24:43 AM) Prot [6.3-8.2 g/dL] 7.1 g/dL (03/29/24:43 AM) WBC [4.0-10.4 K/uL] 6.76 K/uL (03/29/24 11:43 AM) 1Result Comment: Testing Performed By: Dept of Pathology [facility] [address], [address] [place] [address] 2Result Comment: Testing Performed By: Dept of Pathology [facility] [address], [address], [place] [address] Vital Signs Most recent to oldest [Reference Range]: 1 Height 156.8 cm (03/29/24 9:20 AM) Patient Weight 63.3 kg (03/29/24 9:20 AM) Body Mass Index 25.75 kg/m2 (03/29/24 9:20 AM) Temperature [36.5-37.9 DegC] 36.4 DegC *LOW* (03/29/24 9:20 AM) Heart Rate 90 bpm (03/29/24 9:20 AM) Respiratory Rate 16 br/min (03/29/24 9:20 AM) Blood Pressure 128/64mmHg (03/29/24 9:20 AM) Cuff Pulse Pressure 64 mmHg (03/29/24 9:20 AM) Social History Social History Type Response Smoking Status Never smoked cigaret liliana Sex Female Sex Representation Female (finding) FCM Outpt Note * MD Bernie, [place]: PERFORM Event Display: FCM Outpt Note Authored Date: [id number] Chief Complaint Not quite finished with abx tx. Still running temps at home ranging from 99.6- 101.9 and feeling fatigue History of Present Illness 79 y/o F c/o persistent fever of 101.9 and went down to 99.6 this morning . c/o fatigue andheadache(forehead).Patientisonantibioticto treat UTI. ([id number] tid) States thatshestillhavea fulldaydose left.Denies UTI symptoms. Deniesdizziness. Denies nasal congestion, ear pain, denies cough Denies chest pain or shortness of breath Denies abdominal pain, nausea or vomiting, diarrhea or constipation Denies dysuria, frequency or urgency of urination Denies blood in the urine or stool Review of Systems see hpi Physical Exam Vitals & Measurements T:36.4C HR:90(Monitored) RR:16 BP:128/64 SpO2:98% HT:156.8cm WT:63.3kg WT:63.300kg(Dosing) BMI:25.75 General: alert and oriented, no acute distress Eye: PERRL, EOMI, normal conjunctiva HENT: normocephalic Neck: supple Resp: Lungs CTA, non-labored respirations, BS equal, symmetrical expansion CV: normal rate and rhythm, no murmur, no gallop, good pulses equal in all extremities, normal peripheral perfusion, no edema GI: soft, non-tender, non-distended, normal bowel sounds, no organomegaly : no CVA tenderness MS: normal gait Psychiatric: appropriate mood and affect, normal judgement, non-suicidal Assessment/Plan 1.Fever of unknown origin Offand on fever with fatigue. Negative Lyme disease. Normal CBC and CMP tested 1 week ago. Patient reported that her symptoms were similar in the past when she was treated for Lyme disease. She'sconcerned that her Lyme test possibly a false negative. Discussed at length with patient about Lyme disease and testing. She denies any other symptoms other donefatigue and fever. Patient's temperature today is normal. Normal lung sounds but will order CXR. Will order ESR and CRP. Repeat CBC and BMP. Increase oral fluid intake. 2.UTI (urinary tract infection), bacterial Urine culture: E.coli more than 100, 000 colonies. Last day of oral antibiotic. Patient still complaining of fever and fatigue. Advised to take Augmentin 875 mg 1 tab 2x a day for 5 days after she finished the cephalexin. Take the antibiotic with food. Advised to take probiotics. Increase oral fluid intake Follow up in 1 week for re-evaluation. Attestation Time spent on pre-visit plannin min Face to face time spent w/ patient:20 min Time spent documenting pertinent clinical information into the EMR:7 min Total time:32 min Problem List/Past Medical History Ongoing Hyperlipidemia Hypothyroidism Insomnia Macular degeneration Osteoporosis Peripheral neuropathy Prediabetes PVC (premature ventricular contraction) Skin lesion Resolved Macular degeneration, left eye Procedure/Surgical History EGD - esophagogastroduodenoscopy| Service Date: 03/14/2024Esophagogastroduodenoscopy| ServiceDate: 02/25/2021olonoscopy| Service Date: 02/25/2021have biopsy of skin| Service Date: 09/26Cesarean delivery Medications amitriptyline(amitriptyline 10 mg oral tablet), 10 mg= 1 tab, PO, qhs, 3 refills amoxicillin-clavulanate(Augmentin 500 mg-125 mg oral tablet), 1 tab, PO, q12h cephalexin(cephalexin 500 mg oral tablet), 500 mg= 1 tab, PO, tid cholecalciferol(Vitamin D3 5000 intl units (125 mcg) oral tablet), 125 mcg= 1 tab, PO, Daily eszopiclone(eszopiclone 1 mg oral tablet), 1 mg= 1 tab, PO, qhs, PRN fluticasone nasal(Flonase 50 mcg/inh nasal spray), 1 spray, each nostril, Daily, 3 refills gabapentin(gabapentin 300 mg oral capsule), 300 mg= 1 cap, PO, Daily, 3 refills levothyroxine(levothyroxine 50 mcg (0.05 mg) oral tablet), See Instructions multivitamin with minerals([employer]), See Instructions omeprazole(omeprazole 20 mg oral delayed release capsule), 20 mg= 1 cap, PO, Daily, 3 refills risedronate(Actonel 150 mg oral tablet), 150 mg= 1 tab, PO, [id number], 1 refills rosuvastatin(rosuvastatin 5 mg oral tablet), See Instructions, 3 refills ubiquinone(CoQ10 100 mg oral capsule) Allergies Allergy Not found in Searchsinus No Known Medication Allergies Social History Smoking Status Never smoked cigarettes Family History Skin cancer: Son. Health Status Family Member(s) Immunizations Vaccine Date Status SARS-CoV-2 (COVID-19) mRNA-vacc - [id number] 02/10/2024 Recorded influenza virus vaccine, inactivated 06/25/2023 Recorded SARS-CoV-2 (COVID-19) mRNA-vacc - [id number] 06/25/2023 Recorded Comments : 2023-07-08: Historical information-source unspecified tetanus/diphtheria/pertuss, acel (Tdap) 06/19/2023 Recorded Comments : 2023-07-08: Historical information-source unspecified RSV vaccine, preF A-preF B, recombinant 06/19/2023 Recorded Comments : 2023-07-08: Historical information-source unspecified SARS-CoV-2 mRNA-1273 (6y+ bivalent) 01/15/2023 Recorded Comments : 2023-07-08: Historical information-source unspecified SARS-CoV-2 mRNA-1273 (6y+ bivalent) 06/12/2022 Recorded Comments : 2023-01-01: Historical information-source unspecified SARS-CoV-2 (COVID-19) mRNA-1273 vaccine 01/17/2022 Recorded Comments : 2023-01-01: Historical information-source unspecified SARS-CoV-2 (COVID-19) mRNA-1273 vaccine 06/21/2021 Recorded Comments : 2022-01-01: Historical information-source unspecified zoster vaccine, inactivated 06/06/2021 Recorded Comments : 2022-01-01: Historical information-source unspecified SARS-CoV-2 (COVID-19) mRNA-1273 vaccine 05/29/2021 Recorded Comments : 2022-01-01: Historical information-source unspecified zoster vaccine, inactivated 11/30/2020 Recorded Comments : 2022-01-01: Historical information-source unspecified SARS-CoV-2 (COVID-19) mRNA-1273 vaccine 10/12/2020 Recorded Comments : 2022-01-01: Historical information-source unspecified SARS-CoV-2 (COVID-19) mRNA-1273 vaccine 10/07/2020 Recorded Comments : 2022-01-01: Historical information-source unspecified SARS-CoV-2 (COVID-19) mRNA-1273 vaccine 09/11/2020 Recorded Comments : 2022-01-01: Historical information-source unspecified pneumococcal 13-valent vaccine 04/14/2019 Recorded Comments : 2022-01-01: Historical information-source unspecified zoster vaccine live 07/22/2015 Recorded Comments : 2022-01-01: Historical information-source unspecified Recommendations Health Maintenance Pending(in the next year) OverDue Adult Influenza Vaccine due02/27/24and every 1year Due Adult Social Determinants of Health Screening due03/29/24Unknown Frequency Falls Plan of Care due03/29/24Unknown Frequency Medicare Annual Wellness Visit due03/29/24and every 1year Pneumococcal Vaccine Older Adults due03/29/24One-time only Satisfied(in the past 1 year) Satisfied Adult Influenza Vaccine on06/25/23.Satisfied by WILFRED Ulrich Donna Adult Tdap/Td Vaccine on06/19/23.Satisfied by WILFRED Ulrich Donna Body Mass Index on03/29/24.Satisfied by OSBALDO Gregg Bobbi Breast Cancer Screening on01/26/24.Satisfied by OSBALDO Dwyer Angela Electronic Signature on File Electronically Reviewed/Signed by: Kassy Gibbs MD Author Signature Dt/Tm:03/29/2024 11:09 PM Department of Family Medicine VS Patient Care team information Care Team Personnel Name: MD Heath, Young Nguyen Position: Physician - Internal Med Member Role: Primary Care Provider Address: [address] [place] [address]"
--- OUTSIDE RECORDS SUMMARY | 2024-05-20 01:26 | External Medical Summary | Continuity of Care Document ---
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 Name Role Phone HeathYoung goldsmith Patrick Primary Care Physician [phone] Encounter [facility] [id number] Date(s): 04/05/24 - 04/05/[address] [facility] [address] [id number] [phone] Encounter Diagnosis Body mass index [BMI] 25.0-25.9, adult(Discharge Diagnosis) - 04/05/24 UTI (urinary tract infection), bacterial(Discharge Diagnosis) - 04/05/24 Fever(Discharge Diagnosis) - 04/05/24 Fatigue(Discharge Diagnosis) - 04/05/24 Urinary tract infection, site not specified(Final) - Discharge Disposition: Home or Self Care Attending Physician: MD Gibbs [place] Referring Physician: MD Gibbs [place] Allergies, Adverse Reactions, Alerts No Known Medication Allergies Substance Criticality Severity Reaction Reaction Severity Status Allergy Not found in Search 1 sinus Active 1Seasonal Allergies Assessment and Plan Extracted from: Title:Office Visit Note Author:MD Bernie, [facility] Date:04/05/24 1.UTI (urinary tract infec tion), bacterial Patient completed cephalexin 500 mg3 times a day for 7 days and Augmentin 875 mg1 tablet twice a day for5 days. Previous urine culture showed E. coli more than 100,000 colonies. Repeat urine cultureordered. Informed patient that we will let her knowonce we get the urineculture report, if there is still an organismthat is growing in the culture we will call another round of antibiotic. 2.Fever Temperature in the officeis 36.8which is normal.Per patient she is still gettinglow-grade fever at home. Withfatigue. [facility] is to evaluate whether shehasLyme disease. Inform patientthat I will also refer her toinfectious disease. Discussed at length with patientthe possible cause ofherfever and fatiguemight be a urinary tract infection. However patientfamily believeit is the Lyme disease. Discussed at length with patient again about Lyme Testing. Informed her that it is best to see the specialist to discuss more about Lyme disease. 3.Fatigue Increase oral fluid intake. Follow up as needed. Immunizations Given and Recorded Vaccine Date Status Refusal Reason SARS-CoV-2 (COVID-19) mRNA-vacc - [id number] 02/10/24 Recorded SARS-CoV-2 (COVID-19) mRNA-vacc - [id number] 06/25/23 Recorded influenza virus vaccine, inactivated [...] 01/01/23 8:01:00 AM EDT, 1 tab, PO, [id number], Disp# 90 tab, Refills: 1, Pharmacy: [facility] Start Date: 01/01/23 Status: Ordered amitriptyline 10 mg oral tablet Start: 07/08/23 8:34:00 AM EST, 1 tab, PO, qhs, Disp# 90 tab, Refills: 3, Pharmacy: [facility] Start Date: 07/08/23 Status: Ordered CoQ10 100 mg oral capsule Start: 01/01/23 7:59:00 AM EDT Start Date: 01/01/23 Status: Ordered eszopiclone 1 mg oral tablet Start: 04/04/24 12:19:00 PM EDT, 1 tab, PO, qhs, Disp# 30 tab, Refills: 0, PRN: as needed for insomnia, Pharmacy: [facility] Start Date: 04/04/24 Status: Ordered Flonase 50 mcg/inh nasal spray Start: 07/08/23 8:34:00 AM EST, 1 spray, each nostril, Daily, Disp# 16 g, Refills: 3, Pharmacy: [id number] Start Date: 07/08/23 Stop Date: 11/05/23 Status: Ordered gabapentin 300 mg oral capsule Start: 07/08/23 8:34:00 AM EST, 1 cap, PO, Daily, Disp# 90 cap, Refills: 3, Pharmacy: [facility] Start Date: 07/08/23 Status: Ordered levothyroxine 50 mcg (0.05 mg) oral tablet Start: 10/14/23 9:17:00 AM EST, See Instructions, Disp# 90 unknown unit, Refills: 2, TAKE 1 TABLET BY MOUTH DAILY., Pharmacy: [facility] Start Date: 10/14/23 Status: Ordered Macular Health Start: 01/01/22 3:21:00 PM EDT, See Instructions, 4 caps PO daily Start Date: 01/01/22 Status: Ordered omeprazole 20 mg oral delayed release capsule Start: 03/14/24 11:04:00 AM EDT, 1 cap, PO, Daily, Disp# 30 cap, Refills: 3, 1/2 hour before breakfast, Pharmacy: [facility] Start Date: 03/14/24 Status: Ordered rosuvastatin 5 mg oral tablet Start: 01/06/24 8:54:00 AM EDT, See Instructions, Disp# 90 tab, Refills: 3, TAKE 1 TABLET ONCE DAILY AT BEDTIME, Pharmacy: [facility] Start Date: 01/06/24 Status: Ordered Vitamin D3 5000 intl units (125 mcg) oral tablet Start: 01/01/22 3:20:00 PM EDT, 1 tab, PO, Daily Start Date: 01/01/22 Status: Ordered Mental Status 04/05/24 Barriers to Learning one year None evide nt Mandatory Health Literacy Documentation Yes Health Literacy Communication Barriers N ever Primary Language Irish Problem List Condition Confirmation Course Effective Dates Status H ealth Status Informant Macular degeneration Confirmed Active Hyperlipidemia Confirmed Active Hypothyroidism Confirmed Active Insomnia Confirmed Active Osteoporosis Confirmed Active Peripheral neuropathy Confirmed Active Prediabetes Confirmed Active Skin lesion Confirmed Active PVC (premature ventricular contraction) Confirmed Active Diagnosis Diagnosis Type Effective Dates Health Status Cl inical Service Informant UTI (urinary tract infection), bacterial Discharge Diagnosis 04/05/24 Non-Specified Fever Discharge Diagnosis 04/05/24 Non-Specified Fatigue Discharge Diagnosis 04/05/24 Non-Specified Body mass index [BMI] 25.0-25.9, adult Discharge Diagnosis 04/05/24 Non-Specified Procedures Procedure Date Related Diagnosis Body [...] Z line bx, 2nd [place], [id number] Results Orders for Microbiology Reports Name Date Urine Culture (CULTURE, URINE) 04/05/24 Microbiology Reports TEST:Urine.Cx STATUS:Unauthenticated BODY SITE: SOURCE:Urine COLLECTED DATE/TIME:04/05/24 3:30 PM Culture 10 THOUSAND COLONIES/ML PRESUMPTIVE UROGENITAL LEE ANN Vital Signs Most recent to oldest [Reference Range]: 1 Height 156.8 cm (04/05/24 2:48 PM) Patient Weight 62.4 kg (04/05/24 2:48 PM) Body Mass Index 25.38 kg/m2 (04/05/24 2:48 PM) Temperature [36.5-37.9 DegC] 36.8 DegC (04/05/24 2:48 PM) Heart Rate 79 bpm (04/05/24 2:48 PM) Respiratory Rate 16 br/min (04/05/24 2:48 PM) Blood Pressure 118/68mmHg (04/05/24 2:48 PM) Cuff Pulse Pressure 50 mmHg (04/05/24 2:48 PM) Social History Social History Type Response Smoking Status Never smoked cigaret liliana Sex Female Sex Representation Female (finding) [facility] Outpt Note * Sampang, MD, [place]: PERFORM Event Display: [facility] Outpt Note Authored Date: Chief Complaint 1 week follow up for fever. Still having fatigue, higher than baseline temps at home. History of Present Illness 79-year-old female here today for follow-up of UTI,low-grade fever,and fatigue. Patient was treatedwith [id number] mg 3 times a dayfor 7 days.She was given additionalantibiotictreatmentwhich is Ndyccspso876 mg twice a dayfor additional 5 days. Her urine culture showedE. coli more than 100,000 colonies. Recent CBC and CMP test result werenormal.ESR and C- reactive protein alsowere normal. Her Lyme titer was normal.She also had a chestx-ray due to fever of unknown originand it was normal. Today, patientstated thatshe is still having low-grade feverand fatigue. Althoughit is slightly improved aftershe finished antibiotic. States that she is very active she exercises 3 timesa day at the gym. Patient is concernedthat her Lyme titer result is a false negative. States that her symptoms are very similar when she was treated for Lyme. She did not have testing in the past to confirm Lyme disease. She was treated in the past just based on her symptoms. Denies headache, dizziness. Denies nasal congestion, ear pain Denies chest pain or shortness of breath Denies abdominal pain, nausea or vomiting, diarrhea or constipation Denies dysuria, frequency or urgency of urination Denies blood in the urine or stool Denies Numbness, tingling sensation or weakness of the extremities. Denies joint pain or muscle aches. Review of Systems see hpi Physical Exam Vitals & Measurements T:36.8C HR:79(Monitored) RR:16 BP:118/68 SpO2:96% HT:156.8cm WT:62.400kg(Dosing) WT:62.4kg BMI:25.38 General: alert and oriented, no acute distress Eye: PERRL, EOMI, normal conjunctiva HENT: normocephalic, TMs clear, normal hearing, moist oral mucosa, no pharyngeal erythema, no sinus tenderness Neck: supple, non-tender, no lymphadenopathy, no thyromegaly Resp: Lungs CTA, non-labored respirations, BS equal, symmetrical expansion CV: normal rate and rhythm, no murmur, no gallop GI: soft, non-tender, non-distended, normal bowel sounds, no organomegaly : no CVA tenderness MS: normal ROM, normal strength, no tenderness, no swelling, no deformity, normal gait Integumentary: warm, dry, pink, no cyanosis, intact, moist, no pallor, no rash Neurologic: alert and oriented, normal sensory, normal motor, no focal deficits Psychiatric: appropriate mood and affect Assessment/Plan 1.UTI (urinary tract infection), bacterial Patient completed cephalexin 500 mg3 times a day for 7 days and Augmentin 875 mg1 tablet twice a day for5 days. Previous urine culture showed E. coli more than 100,000 colonies. Repeat urine cultureordered. Informed patient that we will let her knowonce we get the urineculture report, if there is still an organismthat is growing in the culture we will call another round of antibiotic. 2.Fever Temperature in the officeis 36.8which is normal.Per patient she is still gettinglow-grade fever at home. Withfatigue. [facility] This is to evaluate whether shehasLyme disease. Inform patientthat I will also refer her to infectious disease. Discussed at length with patientthe possible cause ofherfever and fatiguemight be a urinary tract infection. However patientfamily believeit is the Lyme disease. Discussed at length with patient again about Lyme Testing. Informed her that it is best to see the specialist to discuss more about Lyme disease. 3.Fatigue Increase oral fluid intake. Follow up as needed. Attestation Time spent on pre-visit plannin min Face to face time spent w/ patient:25 min Time spent documenting pertinent clinical information into the EMR:9 min Total time:39 min Problem List/Past Medical History Ongoing Hyperlipidemia Hypothyroidism Insomnia Macular degeneration Osteoporosis Peripheral neuropathy Prediabetes PVC (premature ventricular contraction) Skin lesion Resolved Macular degeneration, left eye Procedure/Surgical History EGD - esophagogastroduodenoscopy| Service Date: 03/14/2024Esophagogastroduodenoscopy| ServiceDate: 02/25/2021olonoscopy| Service Date: 02/25/2021have biopsy of skin| Service Date: 09/26Cesarean delivery Medications amitriptyline(amitriptyline 10 mg oral tablet), 10 mg= 1 tab, PO, qhs, 3 refills cholecalciferol(Vitamin D3 5000 intl units (125 mcg) [...] mg) oral tablet), See Instructions multivitamin with minerals([facility]), See Instructions omeprazole(omeprazole 20 mg oral delayed release capsule), 20 mg= 1 cap, PO, Daily, 3 refills risedronate(Actonel 150 mg oral tablet), 150 mg= 1 tab, PO, [id number], 1 refills rosuvastatin(rosuvastatin 5 mg oral tablet), See Instructions, 3 refills ubiquinone(CoQ10 100 mg oral capsule) Allergies Allergy Not found in Searchsinus No Known Medication Allergies Social History Smoking Status Never smoked cigarettes Family History Skin cancer: Son. Health Status Family Member(s) Immunizations Vaccine Date Status SARS-CoV-2 (COVID-19) mRNA-vacc - [id number] 02/10/2024 Recorded influenza virus vaccine, inactivated 06/25/2023 Recorded SARS-CoV-2 (COVID-19) mRNA-vacc - [id number] 06/25/2023 Recorded Comments : 2023-07-08: Historical information-source [...] Due Adult Social Determinants of Health Screening due04/05/24Unknown Frequency Falls Plan of Care due04/05/24Unknown Frequency Medicare Annual Wellness Visit due04/05/24and every 1year Pneumococcal Vaccine Older Adults due04/05/24One-time only Satisfied(in the past 1 year) Satisfied Adult Influenza Vaccine on06/25/23.Satisfied by WILFRED Ulrich Donna Adult Tdap/Td Vaccine on06/19/23.Satisfied by WILFRED Ulrich Donna Body Mass Index on04/05/24.Satisfied by OSBALDO Gregg Bobbi Breast Cancer Screening on01/26/24.Satisfied by OSBALDO Dwyer Angela Electronic Signature on File Electronically Reviewed/Signed by: Kassy Gibbs MD Author Signature Dt/Tm:04/05/2024 08:10 PM Department of Family Medicine VS Patient Care team information Care Team Personnel Name: MD Heath, Young Nguyen Position: Physician - Internal Med Member Role: Primary Care Provider Address: [address] [place] [address]"
--- NOTE | 2024-05-20 02:00 | History & Physical Report ---
Date of Service May 20, 2024 Assessment & Plan (1) Stroke-like symptoms: (2) Short-term memory loss: (3) Insomnia: (4) Hypothyroid: (5) Dyslipidemia: (6) HTN (hypertension): (7) Aphasia: (8) Brain fog: Plan Strokelike symptoms/acute short-term memory loss/brain fog/aphasia- The patient will be admitted to telemetry for serial cardiac enzymes, serial EKG's, cardiac rhythm monitoring and a 2-D echocardiogram with Dopplers. Patient was assessed as a stroke alert upon arrival to the ED CT scan head without contrast negative CTA head and neck are both negative Chest x-ray was negative EKG showed normal sinus rhythm at [address]-T changes Symptoms had improved significantly by the time of this assessment in the emergency department Give aspirin 324 mg now, and then 81 mg every morning CBC with differential and chemistry profile negative Urinalysis negative Further metabolic workup: B12 level, folic acid level, sedimentation rate, MAIA, and full tickborne panel Stroke without thrombolytic order set Check a fasting lipid panel and hemoglobin A1c Consult neurology Hyperlipidemia- Continue simvastatin Check a fasting lipid panel Insomnia/anxiety- Continue amitriptyline, gabapentin, lorazepam and melatonin Hold eszopiclone History of irregular heartbeat- Patient had been on nebivolol in the past, but has not taken it for a few years History of Present Illness Chief Complaint: The patient reports that she woke up normally this morning had 3 zoom meetings, and then early in the afternoon she was noted by her friends to have issues with repeating herself, and not making complete sense. She felt as if her brain was somewhat foggy. She was advised by her friends to come to the emergency department for assessment. She denied any other neurologic symptoms such as wea kness in arms or legs,, difficulty swallowing or physically being able to speak. She denies any recent travels or known sick exposures. She has had a normal dietary intake pattern Primary Care Provider: Young Joe MD The patient is an 79-year-old female with a past medical history including insomnia, vitamin D deficiency, osteoporosis, allergic rhinitis, hypothyroidism, GERD, and hyperlipidemia. She reports that she had had a history of irregular heartbeat in the past, and has been on nebivolol, but has not been on that for a few years. She presents to the emergency department, at the suggestion of her friends, due to symptoms as noted above. She reports having had treatment for urinary tract infection in the past. She also reports empiric treatment for Lyme disease a few years ago by Dr. Oswald, her PCP. At the present time in emergency department, she reports that her symptoms are significantly improved, but she does not feel completely back to normal yet at this time. Allergies Allergy/AdvReac Type Severity Reaction Status Date / Time No Known Allergies Allergy Unknown Verified 10/19/23 13:26 Home Medications Medication Instructions Recorded Confirmed Type levothyroxine 50 mcg capsule 50 mcg PO DAILY 10/05/19 10/19/23 History gabapentin 300 mg capsule 300 mg PO HS 09/26/20 10/19/23 History lorazepam 1 mg tablet 0.5 - 1 mg PO .Q4-6HR PRN Anxiety 09/26/20 05/28/22 History melatonin 10 mg tablet 10 mg PO HS 09/26/20 05/28/22 History multivitamin 1 tab PO QAM 09/26/20 05/28/22 History nebivolol 5 mg tablet (Bystolic) 5 mg PO HS 09/26/20 10/19/23 History simvastatin 20 mg tablet 20 mg PO HS 09/26/20 10/19/23 History cholecalciferol (vitamin D3) 125 125 mcg PO DAILY 04/03/21 10/19/23 History mcg (5,000 unit) capsule amitriptyline 10 mg tablet 10 mg PO DAILY 10/19/23 10/19/23 History eszopiclone 1 mg tablet 1 mg PO ONCE 10/19/23 10/19/23 History fluticasone propionate 50 intranasal 10/19/23 10/19/23 History mcg/actuation nasal spray,suspension risedronate 150 mg tablet mg PO 10/19/23 10/19/23 History Past Med/Surg History Problem List (Updated 05/20/24 @ 03:59 by Segun Jackson MD) Brain fog Insomnia Hypothyroid Dyslipidemia HTN (hypertension) Short-term memory loss Aphasia (Acute) Stroke-like symptoms (Acute) Vaginal discharge Right knee sprain Right knee pain Osteoarthritis of right knee Synovial cyst of popliteal space [Velasquez], left knee Left knee DJD Left knee pain Medical History (Updated 05/20/24 @ 03:59 by Segun Jackson MD) History of Lyme disease Hypertension Surgical History Hx of section Family History Father Prostate cancer Other Cancer Diabetes Denies family history of Ovarian cancer Breast cancer Colorectal cancer Social History Smoking Status: Never smoker Do You Dip or Chew Tobacco: No; Hx Alcohol Use: Yes Alcohol type: beer and wine Hx Substance Use: Yes Preferred Language: [place] Communication Ability: Effective Account Adjuster Required: No Beliefs That Will Affect Care: None marital status: / Current Living Situation: Alone 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 Feels Safe at Home: Yes Assistive Devices: Contacts and Glasses Review of Systems Review of Systems: The patient denies chest pain, palpitations, shortness of breath, dyspnea on exertion, cough, lower extremity swelling, sore throat, fevers, chills, sweats, weight change, fatigue, nausea, vomiting, diarrhea , constipation, abdominal pain, pelvic pain, blood in urine or stool, dysuria, urinary frequency or urgency, loss of consciousness, rash, abnormal bruising or bleeding, imbalance, focal or generalized weakness, numbness or tingling in arms or legs, generalized arthralgias or myalgias, back or neck pain, or night sweats. The review of systems is otherwise negative other than for that already noted above, and at least 10 systems have been reviewed. Physical Exam Physical Exam: The patient is awake, alert and oriented 3, well developed and well nourished, normocephalic and atraumatic, lying in bed and in no acute distress. HEENT--PERRL, EOMI, mucous membranes and oropharynx normal Neck--supple. No JVD. No bruits. Thyroid normal, trachea midline, no adenopathy . Heart--normal S1 and S2. No murmurs, rubs or gallops. Lungs--clear bilaterally, no respiratory distress, no accessory muscle use. Abdomen--normal bowel sounds and soft. Nontender. Nondistended, no hernias or masses, no organomegaly. Extremities--no cyanosis or clubbing. No edema. Dermatologic--normal skin turgor, normal color, no abnormal lymph nodes, no rash. Neurologic--cranial nerves II through XII grossly intact. Rheumatologic--normal range of motion. Psychiatric--normal affect. Results & Data Results & Data Vital Signs (Past 12 Hours) Vital Signs Temp Pulse Pulse Resp BP BP Pulse Ox 05/20/24 00:00 84 18 183/120 H 97 05/19/24 22:06 96 05/19/24 22:06 05/19/24 22:03 77 17 149/77 H 96 05/19/24 21:23 81 05/19/24 20:57 83 19 153/83 H 94 05/19/24 18:51 36.5 C 92 H 16 196/99 H 98 O2 Del Method 05/20/24 00:00 Room Air 05/19/24 22:06 05/19/24 22:06 Room Air 05/19/24 22:03 05/19/24 21:23 05/19/24 20:57 Room Air 05/19/24 18:51 Room Air Laboratory Results Laboratory Results WBC 6.65 K/ul (4.8-10.8) 05/20/24 02:07 RBC 4.35 M/uL (4.20-5.40) 05/20/24 02:07 Hgb 13.8 g/dl (12.0-16.0) 05/20/24 02:07 Hct 40.6 % (37.0-47.0) 05/20/24 02:07 MCV 93.3 fL (80.0-100.0) 05/20/24 02:07 MCH 31.7 pg (25.0-34.0) 05/20/24 02:07 MCHC 34.0 g/dL (32.0-36.0) 05/20/24 02:07 RDW Std Deviation 45.4 fL (36.4-46.3) 05/20/24 02:07 RDW Coeff of Sylvie 13.2 % (11.5-14.5) 05/20/24 02:07 Plt Count 240 K/uL (130-400) 05/20/24 02:07 MPV 8.7 fL (9.4-12.4) L 05/20/24 02:07 Immature Gran % (Auto) 0.3 % 05/20/24 02:07 Neut % (Auto) 74.6 % 05/20/24 02:07 Lymph % (Auto) 16.4 % 05/20/24 02:07 [place] % (Auto) 6.6 % 05/20/24 02:07 Eos % (Auto) 1.5 % 05/20/24 02:07 Baso % (Auto) 0.6 % 05/20/24 02:07 Neut # (Auto) 4.96 K/uL (1.40-6.50) 05/20/24 02:07 Lymph # (Auto) 1.09 K/uL (1.20-3.40) L 05/20/24 02:07 [place] # (Auto) 0.44 K/uL (0.11-0.59) 05/20/24 02:07 Eos # (Auto) 0.10 K/uL (0.00-0.50) 05/20/24 02:07 Baso # (Auto) 0.04 K/uL (0.00-0.20) 05/20/24 02:07 Immature Gran # (Auto) 0.02 K/uL (0.01-0.20) 05/20/24 02:07 ESR 14 mm/hr (0-30) 05/20/24 02:07 PT 10.1 Seconds (9.0-12.0) 05/19/24 21:36 INR 0.9 (0.9-1.1) 05/19/24 21:36 APTT 26 Seconds (21-31) 05/19/24 21:36 PTT Ratio 1.0 05/19/24 21:36 Sodium 131 mmol/L (136-145) L 05/19/24 21:36 Potassium 3.8 mmol/L (3.5-5.1) 05/19/24 21:36 Chloride 99 mmol/L (98-107) 05/19/24 21:36 Carbon Dioxide 26 mmol/L (21-32) 05/19/24 21:36 Anion Gap 6 (3-11) 05/19/24 21:36 BUN 17 mg/dl (6-23) 05/19/24 21:36 Creatinine 0.79 mg/dl (0.6-1.2) 05/19/24 21:36 Est Cr Clr Drug Dosing 49.5 ml/min 05/19/24 21:36 Est GFR ( Amer) 81.9 ml/min 05/19/24 21:36 Est GFR (Non-Af Amer) 70.7 ml/min 05/19/24 21:36 BUN/Creatinine Ratio 21.5 (10-20) H 05/19/24 21:36 Glucose 110 mg/dl (70-99(Fasting)) H 05/19/24 21:36 POC Glucose 113 mg/dl (70-99) H 05/20/24 00:59 Calcium 9.8 mg/dl (8.6-10.3) 05/19/24 21:36 Magnesium 2.2 mg/dl (1.7-2.4) 05/19/24 21:36 Total Bilirubin 0.4 mg/dl (0.2-1.0) 05/19/24 21:36 AST 25 U/L (13-39) 05/19/24 21:36 ALT 22 U/L (7-52) 05/19/24 21:36 Alkaline Phosphatase 60 U/L (34-104) 05/19/24 21:36 Troponin I High Sens 5.8 pg/ml (0-14) 05/20/24 00:33 Total Protein 6.8 gm/dl (6.0-8.3) 05/19/24 21:36 Albumin 4.6 gm/dl (3.4-5.0) 05/19/24 21:36 Globulin 2.2 gm/dl (2.5-4.0) L 05/19/24 21:36 Albumin/Globulin Ratio 2.1 (0.9-2) H 05/19/24 21:36 TSH 2.613 uIu/ml (0.300-4.500) 05/19/24 21:36 Urine Color Yellow 05/19/24 Unknown Urine Appearance Clear (Clear) 05/19/24 Unknown Urine pH 6.0 (4.5-7.5) 05/19/24 Unknown Ur Specific [place] 1.005 (1.000-1.030) 05/19/24 Unknown Urine Protein Negative (Negative) 05/19/24 Unknown Urine Glucose (UA) Negative (Negative) 05/19/24 Unknown Urine Ketones Negative (Negative) 05/19/24 Unknown Urine Blood Negative (Negative) 05/19/24 Unknown Urine Nitrite Negative (Negative) 05/19/24 Unknown Urine Bilirubin Negative (Negative) 05/19/24 Unknown Urine Urobilinogen Negative (Negative) 05/19/24 Unknown Ur Leukocyte Esterase Negative (Negative) 05/19/24 Unknown Anaplasma Smear See Comment 05/20/24 02:07 Babesia Smear See Comment 05/20/24 02:07 Lyme Disease Screen Negative (Negative) 05/20/24 02:[address] 05/19/24 18:54 Exam(s): CT HEAD Without Contrast EXAM: CT Head Without Intravenous Contrast CLINICAL HISTORY: Reason for exam: Neuro deficit, acute, stroke suspected. TECHNIQUE: Axial computed tomography images of the head/brain without intravenous contrast. CTDI is 37.22 mGy and DLP is 624.41 mGy-cm. Automated exposure control was utilized for the study. A dose lowering technique was utilized adhering to the principles of ALARA. COMPARISON: No relevant prior studies available. FINDINGS: Brain: Unremarkable. No hemorrhage. No significant white matter disease. No edema. Ventricles: Unremarkable. No ventriculomegaly. Bones/joints: Unremarkable. No acute fracture. Soft tissues: Unremarkable. Sinuses: Unremarkable as visualized. No acute sinusitis. Mastoid air cells: Unremarkable as visualized. No mastoid effusion. IMPRESSION: No evidence of acute intercranial pathology. Electronically signed by: Idalia Pavon MD 05/19/24 21:55 PM Head CTA 05/19/24 21:39 Exam(s): CTA HEAD With Contrast IV Amt: 118 ML OPTIRAY 320 EXAM: CT Angiography Head With Intravenous Contrast CLINICAL HISTORY: Reason for exam: confusion. TECHNIQUE: Axial computed tomographic angiography images of the head with intravenous contrast. CTDI is 11.19 mGy and DLP is 425.7 mGy-cm. Automated exposure control was utilized for the study. A dose lowering technique was utilized adhering to the principles of ALARA. MIP reconstructed images were created and reviewed. CONTRAST: Patient received 118 ML OPTIRAY 320 of IV contrast COMPARISON: No relevant prior studies available. FINDINGS: The dural venous sinuses are patent. Right internal carotid artery: No acute findings. Intracranial segment is patent with no significant stenosis. No aneurysm. Right anterior cerebral artery: Unremarkable. No occlusion or significant stenosis. No aneurysm. Right middle cerebral artery: Unremarkable. No occlusion or significant stenosis. No aneurysm. Right posterior cerebral artery: Unremarkable. No occlusion or significant stenosis. No aneurysm. Right vertebral artery: Unremarkable as visualized. Left internal carotid artery: No acute findings. Intracranial segment is patent with no significant stenosis. No aneurysm. Left anterior cerebral artery: Unremarkable. No occlusion or significant stenosis. No aneurysm. Left middle cerebral artery: Unremarkable. No occlusion or significant stenosis. No aneurysm. Left posterior cerebral artery: Unremarkable. No occlusion or significant stenosis. No aneurysm. Left vertebral artery: Unremarkable as visualized. Basilar artery: Unremarkable. No occlusion or significant stenosis. No aneurysm. IMPRESSION: Negative CT angiogram of the head. Electronically signed by: Idalia Pavon MD 05/20/24 01:03 AM Neck CTA 05/19/24 21:39 Exam(s): CTA NECK With Contrast IV Amt: 118 [id number] EXAM: CT Angiography Neck With Intravenous Contrast CLINICAL HISTORY: Reason for exam: confusion. TECHNIQUE: Routine carotid CT angiography protocol was performed with intravenous contrast. NASCET criteria using the distal ICAs for comparison were used for evaluation of stenoses. CTDI is 11.19 mGy and DLP is 425.7 mGy-cm. Automated exposure control was utilized for the study. A dose lowering technique was utilized adhering to the principles of ALARA. MIP reconstructed images were created and reviewed. CONTRAST: Patient received 118 [id number] of IV contrast COMPARISON: None. FINDINGS: VASCULATURE: Right common carotid artery: Unremarkable. No occlusion or significant stenosis. No dissection. Right internal carotid artery: Unremarkable. Extracranial segment is patent with no occlusion or significant stenosis. No dissection. Right external carotid artery: Unremarkable. No occlusion. Right vertebral artery: Unremarkable. No occlusion or significant stenosis. No dissection. Left common carotid artery: Unremarkable. No occlusion or significant stenosis. No dissection. Left internal carotid artery: Unremarkable. Extracranial segment is patent with no occlusion or significant stenosis. No dissection. Left external carotid artery: Unremarkable. No occlusion. Left vertebral artery: Unremarkable. No occlusion or significant stenosis. No dissection. NECK: Bones/joints: Unremarkable. No acute fracture. Soft tissues: Unremarkable. Lung apices: Clear. CAROTID STENOSIS REFERENCE USING NASCET CRITERIA: % ICA stenosis = (1 - narrowest ICA diameter/diameter of distal cervical ICA) x 100. Mild - <50% stenosis. Moderate - 50-69% stenosis. Severe - 70-94% stenosis. Near occlusion - 95-99% stenosis. Occluded - 100% stenosis. IMPRESSION: Negative CTA neck. Electronically signed by: Idalia Pavon MD 05/20/24 01:05 AM Code Status & VTE Plan Code Status Full code VTE Prophylaxis Plan VTE Prophylaxis will be ordered: Yes PG Care Time/CCT Total # of Minutes Spent Total Time Spent with Patient: Total time spent is greater than 50% in coordination of care (as documented) at patient's floor/unit and/or counseling patient: Coding Level of Care Code 13393 INT INP/OBS CARE 3/75MIN Diagnoses Stroke-like symptoms R29.90 Short-term memory loss R41.3 Insomnia G47.00 Hypothyroid E03.9 Dyslipidemia E78.5 HTN (hypertension) I10 Aphasia R47.01 Brain fog R41.89
[2024-05-20] MEDS ORDERED: PHARMACIST DISCHARGE MED REC CONSULT PRN (02:23)
[2024-05-20] MEDS ORDERED: ACETAMINOPHEN 325 MG TAB PO PRN (02:32)
[2024-05-20] MEDS ORDERED: LORazepam 0.5 MG TAB PO PRN (02:32)
[2024-05-20] MEDS: ASPIRIN CHEW 324 MG PO STA (02:36)
[2024-05-20] MEDS ORDERED: MELATONIN 3 MG TAB PO PRN (02:42)
[2024-05-20 02:54] LABS: Basophils # (auto) 0.04 K/uL (0.00-0.20); Basophils % (auto) 0.6 %; Eosinophils % (auto) 1.5 %; Hematocrit (blood only) 40.6 % (37.0-47.0); Hemoglobin 13.8 g/dl (12.0-16.0); Immature Granulocytes # (auto) 0.02 K/uL (0.01-0.20); Immature Granulocytes % (auto) 0.3 %; Lymphocytes # (auto) 1.09 K/uL (1.20-3.40); Lymphocytes % (auto) 16.4 %; Mean Corpuscular Hemoglobin 31.7 pg (25.0-34.0); Mean Corpuscular Volume 93.3 fL (80.0-100.0); Mean Platelet Volume 8.7 fL (9.4-12.4); Monocytes # (auto) 0.44 K/uL (0.11-0.59); Monocytes % (auto) 6.6 %; Neutrophils # (auto) 4.96 K/uL (1.40-6.50); Neutrophils % (auto) 74.6 %; Platelet Count 240 K/uL (130-400); RDW Coefficient of Variation 13.2 % (11.5-14.5); RDW Standard Deviation 45.4 fL (36.4-46.3); Red Blood Count 4.35 M/uL (4.20-5.40); White Blood Count 6.65 K/ul (4.8-10.8)
[2024-05-20 05:02] LABS: Folate (Folic Acid),Ser orPlas > 22.30 ng/ml (>5.38)
[2024-05-20 05:03] LABS: Vitamin B12 > 1500 pg/ml (180-914)
[2024-05-20 05:07] LABS: BUN Creatinine Ratio 18.6 (10-20); Calcium 9.5 mg/dl (8.6-10.3); Chol HDL Ratio 2.1 (0-5); Creatinine Clr Calc Pharmacy 45.5 ml/min; Est GFR (African American) 73.9 ml/min; Est GFR (Non-African American) 63.8 ml/min; Potassium 3.8 mmol/L (3.5-5.1)
--- NOTE | 2024-05-20 06:00 | Magnetic Resonance Report ---
Exam(s): MRI HEAD Without Contrast EXAM: MR Head Without Intravenous Contrast CLINICAL HISTORY: Reason for exam: acute memory loss, confusion. TECHNIQUE: Magnetic resonance images of the head/brain without intravenous contrast in multiple planes. COMPARISON: Prior head CT from May 19, 2024. FINDINGS: Brain: Minimal nonspecific white matter changes. The flow voids of the base the brain are intact. No mass. No hemorrhage. No acute infarct. Ventricles: Unremarkable. No ventriculomegaly. Bones/joints: Unremarkable. No acute fracture. Sinuses: Unremarkable as visualized. No acute sinusitis. Mastoid air cells: Unremarkable as visualized. No mastoid effusion. Orbits: Bilateral lens replacements. IMPRESSION: No evidence of acute intracranial pathology. Electronically signed by: Idalia Pavon MD 05/20/24 05:59 AM
[2024-05-20 07:14] VITALS: BP 118/74; PULSE 78; RESP 16; O2SAT 96
--- NOTE | 2024-05-20 07:45 | XRay Report ---
XR chest 1V portable HISTORY: 79 years-old Female stroke alert acute stroke like symptoms COMPARISON: 03/29/2024 TECHNIQUE: PA view of the chest FINDINGS: Cardiomediastinal and hilar silhouettes are within normal limits. No pneumothorax, pleural effusion o r airspace consolidation. The bones appear intact. IMPRESSION: No acute process. ACT 112: Negative or not required by law. The above report was generated using voice recognition software. It may contain grammatical, syntax o r spelling errors. Electronically signed by: Yadiel Camp M.D. 05/20/2024 7:43 AM
[2024-05-20] MEDS: LEVOTHYROXINE SODIUM 50 MCG TABLET PO SCH (07:46)
[2024-05-20 07:48] LABS: Estimated Average Glucose 128 mg/dl; Hemoglobin A1C 6.1 % (4.5-5.6)
[2024-05-20] MEDS: PANTOprazole 40 MG TAB PO SCH (07:49)
--- NOTE | 2024-05-20 08:24 | Neurology Consultation ---
Date of Consultation May 20, 2024 Assessment & Plan (1) TGA (transient global amnesia): History of Present Illness Attending Physician: Fiona Sena MD History of Present Illness pt this morning feeling well. back to herself. does not remember she was repeating herself when her friend was at home. no LOC or weakness. mri brain negative. chart reviewed. admission HPI: The patient reports that she woke up normally this morning had 3 zoom meetings, and then early in the afternoon she was noted by her friends to have issues with repeating herself, and not making complete sense. She felt as if her brain was somewhat foggy. She was advised by her friends to come to the emergency department for assessment. She denied any other neurologic symptoms such as weakness in arms or legs,, difficulty swallowing or physically being able to speak. She denies any recent travels or known sick exposures. She has had a normal dietary intake pattern Primary Care Provider: Young Joe MD The patient is an 79-year-old female with a past medical history including insomnia, vitamin D deficiency, osteoporosis, allergic rhinitis, hypothyroidism, GERD, and hyperlipidemia. She reports that she had had a history of irregular heartbeat in the past, and has been on nebivolol, but has not been on that for a few years. She presents to the emergency department, at the suggestion of her friends, due to symptoms as noted above. She reports having had treatment for urinary tract infection in the past. She also reports empiric treatment for Lyme disease a few years ago by Dr. Oswald, her PCP. At the present time in emergency department, she reports that her symptoms are significantly improved, but she does not feel completely back to normal yet at this time. Allergies Allergy/AdvReac Type Severity Reaction Status Date / Time No Known Allergies Allergy Unknown Verified 10/19/23 13:26 Home Medications Medication Instructions Recorded Confirmed Type levothyroxine 50 mcg capsule 50 mcg PO DAILY 10/05/19 10/19/23 History gabapentin 300 mg capsule 300 mg PO HS 09/26/20 10/19/23 History lorazepam 1 mg tablet 0.5 - 1 mg PO .Q4-6HR PRN Anxiety 09/26/20 05/28/22 History melatonin 10 mg tablet 10 mg PO HS 09/26/20 05/28/22 History multivitamin 1 tab PO QAM 09/26/20 05/28/22 History nebivolol 5 mg tablet (Bystolic) 5 mg PO HS 09/26/20 10/19/23 History simvastatin 20 mg tablet 20 mg PO HS 09/26/20 10/19/23 History cholecalciferol (vitamin D3) 125 125 mcg PO DAILY 04/03/21 10/19/23 History mcg (5,000 unit) capsule amitriptyline 10 mg tablet 10 mg PO DAILY 10/19/23 10/19/23 History eszopiclone 1 mg tablet 1 mg PO ONCE 10/19/23 10/19/23 History fluticasone propionate 50 intranasal 10/19/23 10/19/23 History mcg/actuation nasal spray,suspension risedronate 150 mg tablet mg PO 10/19/23 10/19/23 History Patient History Medical History (Updated 05/20/24 @ 08:24 by Jorge Oconnor MD) History of Lyme disease Hypertension Surgical History Hx of section Family History Father Prostate cancer Other Cancer Diabetes Denies family history of Ovarian cancer Breast cancer Colorectal cancer Social History Smoking Status: Never smoker Do You Dip or Chew Tobacco: No; Hx Alcohol Use: Yes Alcohol type: beer and wine Hx Substance Use: Yes Preferred Language: Portuguese Communication Ability: Effective Prevention Coordinator Required: No Beliefs That Will Affect Care: None marital status: / Current Living Situation: Alone 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 Recommendations: pending echo, if negative, likely can be discharged. avoid dehydration and stimulants strict BP control. call again if new question. Chart reviewed I have spent more than 50% educating patient about potential diagnosis and neurological evaluation and coordinating care with patient's treatment team. Total time spent (including chart review and coordination of care): 45 min (this includes chart review). Results & Data Vital Signs (Past 12 Hours) Vital Signs Pulse Pulse Resp BP BP Pulse Ox Pulse Ox 05/20/24 07:12 94 05/20/24 07:12 78 16 118/74 96 05/20/24 06:58 71 05/20/24 04:34 80 20 162/101 H 98 05/20/24 04:34 05/20/24 03:00 78 16 146/80 H 97 05/20/24 02:00 80 19 148/80 H 97 05/20/24 01:11 174/111 H 05/20/24 00:00 84 18 183/120 H 97 05/19/24 22:06 96 05/19/24 22:06 05/19/24 22:03 77 17 149/77 H 96 05/19/24 21:23 81 05/19/24 20:57 83 19 153/83 H 94 O2 Del Method O2 Del Method 05/20/24 07:12 Room Air 05/20/24 07:12 Room Air 05/20/24 06:58 05/20/24 04:34 Room Air 05/20/24 04:34 Room Air 05/20/24 03:00 05/20/24 02:00 05/20/24 01:11 05/20/24 00:00 Room Air 05/19/24 22:06 05/19/24 22:06 Room Air 05/19/24 22:03 05/19/24 21:23 05/19/24 20:57 Room Air PG Care Time/CCT Total # of Minutes Spent Total Time Spent with Patient: Total time spent is greater than 50% in coordination of care (as documented) at patient's floor/unit and/or counseling patient: Coding Level of Care Code 60229 IN/OBS CONSULT LVL 3,45M Diagnoses TGA (transient global amnesia) G45.4
[2024-05-20] MEDS ORDERED: AMITRIPTYLINE HCL 10 MG TAB PO SCH ×2 (09:00→21:00)
[2024-05-20] MEDS ORDERED: CHOLECALCIFEROL 125 MCG (5,000 UNITS) TAB PO SCH (09:00)
[2024-05-20] MEDS ORDERED: Nursing to Pharmacy Communication SCH (09:30)
--- NOTE | 2024-05-20 09:51 | Discharge Summary ---
Date of Service May 20, 2024 Admission HPI Per Admitting Provider The patient is an 79-year-old female with a past medical history including insomnia, vitamin D deficiency, osteoporosis, allergic rhinitis, hypothyroidism, GERD, and hyperlipidemia. She reports that she had had a history of irregular heartbeat in the past, and has been on nebivolol, but has not been on that for a few years. She presents to the emergency department, at the suggestion of her friends, due to symptoms as noted above. She reports having had treatment for urinary tract infection in the past. She also reports empiric treatment for Lyme disease a few years ago by Dr. Oswald, her PCP. At the present time in emergency department, she reports that her symptoms are significantly improved, but she does not feel completely back to normal yet at this time. Admission Exam (Per Admitting) Constitutional The patient is awake, alert and oriented 3, well developed and well nourished, normocephalic and atraumatic, lying in bed and in no acute distress. HEENT--PERRL, EOMI, mucous membranes and oropharynx mildly dry Neck--supple. No JVD. No bruits. Thyroid normal, trachea midline, no adenopathy. Heart--normal S1 and S2. No murmurs, rubs or gallops. Lungs--clear bilaterally, no respiratory distress, no accessory muscle use. Abdomen--normal bowel sounds and soft. Extremities--no cyanosis or clubbing. No edema. Dermatologic--normal skin turgor, normal color, no abnormal lymph nodes, no rash. Neurologic--cranial nerves II through XII grossly intact. Rheumatologic--normal range of motion. Psychiatric--normal affect. 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 Patient was assessed as a stroke alert upon arrival to the ED CT scan head without contrast negative CTA head and neck are both negative MRI brain also negative, no evidence of stroke Chest x-ray was negative EKG showed normal sinus rhythm at [address]-T changes Symptoms had improved significantly by the time of this assessment in the emergency department Give aspirin 324 mg now, and then 81 mg every morning CBC with differential and chemistry profile negative Urinalysis negative Further metabolic workup: B12 level, folic acid level, sedimentation rate, MAIA, and full tickborne panel Stroke without thrombolytic order set Check a fasting lipid panel and hemoglobin A1c Consult neurology Hyperlipidemia- Continue simvastatin Check a fasting lipid panel Insomnia/anxiety- Continue amitriptyline, gabapentin, lorazepam and melatonin Hold eszopiclone History of irregular heartbeat- Patient had been on nebivolol in the past, but has not taken it for a few years Coding Level of Care Code 63933 INP/OBS DISCH >30 MIN Diagnoses Stroke-like symptoms R29.90 Short-term memory loss R41.3 Insomnia G47.00 Hypothyroid E03.9 Dyslipidemia E78.5 HTN (hypertension) I10 Aphasia R47.01 Brain fog R41.89 Time Spent (min) 35
--- NOTE | 2024-05-20 11:12 | XCELERA ---
[id number]
--- NOTE | 2024-05-20 11:28 | Electrocardiogram Report ---
Test Reason : Blood Pressure : */* mmHG Vent. Rate : 88 BPM Atrial Rate : 88 BPM P-R Int : 138 ms QRS Dur : 62 ms QT Int : 338 ms P-R-T Axes : 69 75 69 degrees QTcB Int : 408 ms Normal sinus rhythm Normal ECG When compared with ECG of 26-Sep-2020 16:34, Premature ventricular complexes are no longer Present Confirmed by Torres Hays ([id number]) on 05/20/2024 11:28:14 AM Referred By: Confirmed By: Torres Hays
[2024-05-20] MEDS ORDERED: GABAPENTIN 300 MG CAP PO SCH (21:00)
[2024-05-20] MEDS ORDERED: SIMVASTATIN 20 MG TAB PO SCH (21:00)
[2024-05-24 03:57] LABS: Anti Nuclear Antibody Screen NEGATIVE (NEGATIVE); Babesia microti DNA Not Detected (Not Detected)
== END 2024-05-20 09:54 | disposition home or self-care (01) ==
LOC: EDINP 18:24 → ED 18:24 → SUATTDRO 05-20 01:59 → EDINP 05-20 02:32